=== PATIENT | female | born 1955 | race Caucasian/White ===

== ENCOUNTER → 2018-05-05 03:58 | Outpatient (CLI) | payer BC, SELFPAY ==
[2018-05-05 08:43] LABS: Abs Immature Grans 0.03 k/cumm (0.0-0.09); Absolute Basophil Count 0.05 k/cumm (0.0-0.2); Absolute Eosinophil Count 0.09 k/cumm (0.0-0.7); Absolute Lymphocyte Count 1.72 k/cumm (1.2-3.4); Absolute Monocyte Count 0.76 k/cumm (0.11-0.7); Absolute Neutrophil Count 4.17 k/cumm (1.2-6.7); Basophils % 0.7; Eosinophils % 1.3; HCT 39.7 % (36.0-46.0); HGB 13.2 g/dL (12.0-15.5); Immature Grans % 0.4; Lymphocytes % 25.2; Mean Corp. HGB Concentration 33.2 g/dL (32.0-36.0); Mean Corpuscular Hemoglobin 29.5 pg (27.0-33.0); Mean Corpuscular Volume 88.6 fL (80-95); Mean Platelet Volume 12.2 fL (8.0-11.0); Monocytes % 11.1; Neutrophils % 61.3; Platelet Count 272 x1000/uL (130-400); RBC 4.48 m/cumm (4.00-5.20); RBC Distribution Width 13.9 % (11.7-14.6); White Blood Cell Count 6.82 k/cumm (4.4-10.8)
[2018-05-05 09:46] LABS: ESR 33 MM/HR (0-30)
[2018-05-05 10:01] LABS: ALT 22 U/L (12-78); AST 21 U/L (15-37); Albumin 3.6 g/dL (3.4-5.0); Alkaline Phosphatase 92 U/L (46-116); Anion Gap 9.6 mmol/L (3-11); BUN 10 mg/dL (7-18); Bilirubin, Total 0.4 mg/dL (0.2-1.0); C-Reactive Protein 1.83 mg/dL (0.0-0.3); CO2 26.4 mmol/L (21.0-32.0); CREATININE 1.09 mg/dL (0.55-1.02); Calcium 9.1 mg/dL (8.5-10.1); Chloride 106 mmol/L (98-107); Glucose 91 mg/dL (70-100); Sodium 142 mmol/L (136-145)
[2018-05-06 13:57] LABS: ANA Interpretation Negative (NEGAT)
== END ==
PROVIDERS: PCP Internal Medicine; Visit Provider Internal Medicine Rheumatology
DX: R76.8 Other specified abnormal immunological findings in serum (principal); M25.50 Pain in unspecified joint
CPT/HCPCS: 36415; 80053; 85652; 85025; 86038; 86140; 86235

== ENCOUNTER 2019-03-13 09:24 | Outpatient (CLI) | payer BC, SELFPAY ==
[2019-03-13 11:47] LABS: TSH (W/Ref FT4) 2.56 uIU/mL (0.358-3.74)
== END 2019-03-13 09:44 ==
PROVIDERS: PCP Internal Medicine; Visit Provider Internal Medicine
DX: E03.9 Hypothyroidism, unspecified (principal)
CPT/HCPCS: 36415; 84443

== ENCOUNTER 2019-04-18 00:37 | Outpatient (CLI) | payer BC, SELFPAY ==
--- NOTE | 2019-04-18 14:45 | DI.RAD_ITS ---
SYMPTOMS/DIAGNOSIS: PREMATURE MENOPAUSE, E28.319, HYPOTHYROIDISM, E03.9 DEXA SCAN: Routine examination. Evaluation of the spine shows no compression deformities. Evaluation of the left hip shows a total T score of 1 and a Z score of 2. Evaluation of the lumbar spine shows a total T score of 0.3 and a Z score of 1.8. IMPRESSION: These are within normal limits. No evidence of osteoporosis is present.
--- NOTE | 2019-04-18 15:10 | DI.MAMMO_ITS ---
SYMPTOM/DIAGNOSIS: SCREENING, Z12.31 MAMMOGRAMS: Mammograms were interpreted according to the usual protocol including computer analysis with CAD system, tomosynthesis and C view imaging. Comparison is with the prior examinations. No suspicious masses or microcalcifications are seen. There is no definite evidence of malignancy. IMPRESSION: Negative mammogram. Routine screening is recommended. Category 1, breast density A. MQSA ASSESSMENT OF FINDINGS: Negative. Category 1. Patient will receive a letter notifying them of these results. BI-RAD category A. The breasts are almost entirely fatty.
== END 2019-04-18 00:57 ==
PROVIDERS: PCP Internal Medicine; Visit Provider Internal Medicine
DX: E03.9 Hypothyroidism, unspecified (principal); E28.319 Asymptomatic premature menopause; Z12.31 Encounter for screening mammogram for malignant neoplasm of breast
CPT/HCPCS: 77063; 77067; 77080

== ENCOUNTER 2019-04-18 11:10 | Outpatient (CLI) | payer BC, SELFPAY | END 2019-04-18 11:30 | PROVIDERS: PCP Internal Medicine; Visit Provider Internal Medicine | DX: R69 Illness, unspecified (principal) ==

== ENCOUNTER 2019-10-24 08:33 | Outpatient (CLI) | payer BC, SELFPAY ==
--- NOTE | 2019-10-24 08:14 | HPE_ITS ---
Date of service: 10/24/19 Assessment and Plan Assessment and plan (1) Tricompartment osteoarthritis of left knee: Status: Chronic Assessment and plan: Left total knee replacement. Details of surgery were discussed with patient as well as risks and pertinent anatomy. All questions were answered. History of Present Illness History of Present Illness Chief Complaint: Left knee pain Narrative: Ankit grant comes in today for preop history and physical for a left total knee replacement. She has been bothered by her left knee for many years, she thinks that the arthritis stems from a couple of injuries that she had 20 years ago. She had had an injection by her security sales manager in her left knee which provided her fairly good relief but only for a few weeks. Knee bothers her mostly when she is ambulating up or down stairs. Also bothers her on uneven ground, she is walking in a manner that is not straight forward. She has been modifying her activity, and taking ibuprofen to try to help with the pain. She continues to have pain even with these activity modifications, as well as after injections. Due to her failure of conservative treatment, Dr. Jones does offer a left total knee replacement, and she is anxious to proceed. Pertinent Surgical Information Patient denies history of hypertension, CVA, [place], angina, asthma, COPD, renal or liver disorders, hepatitis, bleeding disorders, diabetes, immune or thyroid disorders. No complications from anesthesia. Review of Systems Constitutional Constitutional: Denies fever(s) ENT Ears, Nose, Mouth, and Throat: Denies dizziness and Denies sore throat Cardiovascular Cardiovascular: Denies chest pain, Denies palpitations and Denies dyspnea Respiratory Respiratory: Denies cough and Denies dyspnea Gastrointestinal Gastrointestinal: Denies abdominal pain, Denies melena, Denies hematochezia, Denies diarrhea, Denies nausea and Denies vomiting Genitourinary Genitourinary: Denies hematuria and Denies dysuria Neurologic Neurologic: Denies dizziness Endocrine Endocrine: Denies palpitations [facility] Medical History (Updated 10/24/19 @ 09:06 by Ky Mishra) Acquired hypothyroidism (Chronic 02/02/17) BMI 50.0-59.9, adult (Chronic) Complex atypical endometrial hyperplasia (Resolved 06/08/17) fx left clavicle GERD (gastroesophageal reflux disease) (Chronic) H/O cancer of uterus (Acute) History of elevated antinuclear antibody (MYRNA) (Acute) Shingles (Acute) 05/2019 minor outbreak Surgical History Cholecystectomy (09/27/04) H/O hysterectomy with oophorectomy (Acute) [facility] [place] Social History (Updated 08/30/19 @ 15:24 by Teri Greer) Smoking/Tobacco Use Status: Never Alcohol Intake: current Alcohol Intake frequency: a few times a week Alcohol type: wine Drug use: Never Substance use type: does not use Household members: spouse Number of Children: 0 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 Current gender identity: female What is your relationship status?: Panel score (0-1 are the most socially isolated patients): 1 What type of physical activity do you participate in: walking Duration: 15-30 minutes/day Frequency: 3-4 times per week Working smoke detector in home: Yes Carbon monox detector in home: Yes Meds Home Medications and Allergies Home Medications Medication Instructions Recorded Confirmed Type omeprazole 20 mg PO DAILY 08/30/13 10/24/19 History levothyroxine 75 mcg tablet 75 mcg PO DAILY #90 tab-cap 03/14/19 10/24/19 Rx ibuprofen 200 mg capsule 800 mg PO BID PRN cap 08/30/19 10/24/19 History Allergies Allergy/AdvReac Type Severity Reaction Status Date / Time minocycline HCl Allergy Severe Anaphylaxsi Verified 10/24/19 09:09 [From Minocin] s Skin Cleanser Combination Allergy Severe Anaphylaxsi Verified 10/24/19 09:09 No.4 s [From Minocin] adhesive AdvReac Intermediate Verified 10/24/19 09:09 hayfever Allergy Mild Uncoded 10/24/19 09:09 Exam [facility] Head: normocephalic and atraumatic General nose exam: no nasal discharge Throat: uvula midline and no uvular edema Other: soft palate rises symmetrically, no erythema Eyes Conjunctivae: conjunctivae normal Sclera: sclerae normal Pupils: PERRL Resp Effort & Inspection: normal respiratory effort Auscultation: clear to auscultation bilaterally and no wheezes Cardio Rate: regular rate Rhythm: regular rhythm Heart Sounds: S1 normal, S2 normal and no murmurs GI Palpation: soft, no hepatosplenomegaly and nontender Auscultation: normal bowel sounds Results Labs Result diagrams: 10/24/19 09:45
[2019-10-24 10:07] LABS: Abs Immature Grans 0.03 k/cumm (0.0-0.09); Absolute Basophil Count 0.05 k/cumm (0.0-0.2); Absolute Lymphocyte Count 2.51 k/cumm (1.2-3.4); Absolute Monocyte Count 0.93 k/cumm (0.11-0.7); Basophils % 0.6; Eosinophils % 1.2; HCT 40.7 % (36.0-46.0); HGB 13.1 g/dL (12.0-15.5); Immature Grans % 0.4 %; Lymphocytes % 30.5; Mean Corp. HGB Concentration 32.2 g/dL (32.0-36.0); Mean Corpuscular Volume 90.2 fL (80-95); Mean Platelet Volume 11.5 fL (8.0-11.0); Monocytes % 11.3; Platelet Count 308 x1000/uL (130-400); RBC 4.51 m/cumm (4.00-5.20); RBC Distribution Width 13.7 % (11.7-14.6); White Blood Cell Count 8.22 k/cumm (4.4-10.8)
== END 2019-10-24 08:53 ==
PROVIDERS: PCP Internal Medicine; Visit Provider Orthopaedic Surgery
DX: M25.562 Pain in left knee (principal); M17.12 Unilateral primary osteoarthritis, left knee; Z01.818 Encounter for other preprocedural examination; Z01.812 Encounter for preprocedural laboratory examination
CPT/HCPCS: 36415; NC; 85025

== ENCOUNTER 2019-10-30 05:51 | Inpatient (IN) | payer BC, SELFPAY ==
[2019-10-24 08:44] VITALS: BP 117/74; PULSE 87; TEMP 36.7; O2SAT 94
--- NOTE | 2019-10-24 15:09 | PDOC.CMPRO ---
- If Service Date Differs Date of service: 10/24/19 Time of Service: 15:09 Care Management Progress Note CM was consulted to visit with Catarina at her pre-op appointment for her L Knee replacement scheduled for 10/30/[address] Jones. Catarina lives with her , Jayson near [facility] in [place], [place]. 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 Catarina's sister, Alissa will be staying with them for a couple weeks after her surgery to help care for her. Catarina lives in a two story home, with her bedroom upstairs, but she also has a bedroom downstairs near a bathroom that she can stay in until she is confident traveling up and down stairs. She does not have any DME currently. CM advised that her needs would be evaluated by PT while inpatient, post surgically. Catarina's PCP is Dr. Halie Blunt at [facility]. She has BC/BS for insurance. She is already signed up for the Portal. She has an advance directive filled out, but it is not yet on file at [facility]. She will bring in a copy to be uploaded to her chart by [facility]. Catarina's main concern is getting out of the house frequently in the winter to go to PT, as it is 40 min from her home. She inquired about having her PT in [place], [place]. Catarina is independent at baseline.
[2019-10-30] VITALS (18 sets, daily range): BP systolic 90–139; BP diastolic 34–76; PULSE 69–81; RESP 9–26; TEMP 36.2–36.9; O2SAT 91–100
[2019-10-30] MEDS: Lactated Ringers 1,000 ML 80 ML IV ×2 (06:48→12:06)
[2019-10-30] MEDS: Bupivacaine 0.25% Pres-Free 30 ML VIAL (07:18)
[2019-10-30] MEDS: ceFAZolin 2 GM/50 ML BAG IVPB ×3 (07:33→19:57)
[2019-10-30] MEDS: Hydrogen Peroxide 3% 480 ML BTL (09:12)
[2019-10-30] MEDS: Bupivacaine 0.5% Pres-Free 30 ML VIAL (10:26)
--- NOTE | 2019-10-30 11:34 | DI.RAD_ITS ---
EXAM: XR KNEE LT 2V AP,LAT INDICATION: check total knee components in RR. COMPARISON: Left Knee from 04/11/2019 TECHNIQUE: 2D digital imaging was performed. FINDINGS: The patient is now status post left total knee replacement. The orthopedic hardware appears in good position. Postsurgical changes are seen in the soft tissues. The bones are intact. IMPRESSION: Status post left TKR.
[2019-10-30] MEDS: HYDROmorphone 2 MG/ML VIAL IVP ×5 (11:41→12:34)
[2019-10-30] MEDS: Normal Saline Flush 10 ML SYR IV ×3 (11:41→21:25)
[2019-10-30] MEDS: Dexamethasone 4 MG/ML VIAL IVP (12:20)
[2019-10-30] MEDS: Acetaminophen 325 MG TAB 650 MG PO (13:11)
[2019-10-30] MEDS: oxyCODONE-CR 10 MG TABCR PO (13:12)
[2019-10-30] MEDS: POTASSIUM CHLORIDE/0.9% NACL 1,000 ML 125 MEQ IV ×2 (13:24→21:26)
--- NOTE | 2019-10-30 14:23 | IN_ITS ---
Date of service: 10/30/19 Time of Service: 14:23 PT Notes Visit Reasons: POST-OP L TOTAL KNEE Physical Therapy Inpatient Initial Evaluation Date: 10/30/2019 Referring Doctor: Rafael Jones PT Orders: PT CONSULT: s/p ortho surgery Precautions: Fall. Standard. Activity as tolerated. Immobilizer on L LE. Patient Profile/Admitting Diagnosis: Pt is 64-year-old female presenting status post left total knee arthroplasty. 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 Lives at home with her in [place], [place]. No stairs to enter the home. Ten steps to get the second floor where the master bedroom is. Notes that she is able to stay in a first floor bedroom, until she is able to use the stairs. The pt?s sister will be staying with her for a couple of weeks to help where needed. Equipment Owned/DME: none Subjective: Pt reports that she tired following her surgery. She is experiencing a 3-4/10 pain. Objective: General Observation: Knee immobilizer on L LE with Frost dressing and wound vac. O2 on 2 L/min via nasal cannula. IV line in L UE. Sanchez catheter in place. Mental Status: alert and oriented x4 Pain: 3-4/10 with rest. 6-7/10 with standing. Vital Signs: Supine: BP 111/70 mmHg, HR 72 bpm, SpO2 99% Sitting: BP 138/90 mmHg, HR 86 bpm, SpO2 95% Standing: BP 152/86 mmHg, HR 88 bpm, SpO2 99% ROM: Right Upper Extremity: Shoulder Flexion WFL. Shoulder abduction WFL. Elbow flexion WFL. Wrist flexion WFL. Opening and closing of hand WFL. Left Upper Extremity: Shoulder Flexion WFL. Shoulder abduction WFL. Elbow flexion WFL. Wrist flexion WFL. Opening and closing of hand WFL. Right Lower Extremity: Hip flexion WFL. Hip abduction WFL. Knee flexion WFL. Ankle dorsiflexion WFL. Ankle plantarflexion WFL. Left Lower Extremity: Hip flexion WFL. Hip abduction WFL. Knee flexion NT. Knee extension NT. Ankle dorsiflexion WFL. Ankle plantarflexion WFL. Strength: Right Upper Extremity: Shoulder flexors 5/5. Shoulder abductors 5/5. Elbow flexors 5/5. Elbow extensors 5/5. Installation Manager strong. Left Upper Extremity: Shoulder flexors 5/5. Shoulder abductors 5/5. Elbow flexors 5/5. Elbow extensors 5/5. Installation Manager strong. Right Lower Extremity: Hip flexors 5/5. Hip abductors 5/5. Knee flexors 5/5. Kne e extensors 5/5. Ankle dorsiflexors 5/5. Ankle plantarflexors 5/5. Left Lower Extremity: Hip flexors 5/5. Hip abductors 5/5. Knee flexors NT due to dressing and knee immobilizer. Knee extensors NT due to dressing and knee immobilizer. Ankle dorsiflexors 5/5. Ankle plantarflexors 5/5. Sensation: Intact as to pain and pressure on bilateral lower extremities. Bed Mobility/Transfers: Rolling CGA Supine to sit CGA (reports dizziness with initially sitting up which quickly resolves) Sit to supine CGA Sit to stand CGA Stand to sit CGA Bed to chair CGA Chair to bed CGA Gait: Pt was able to ambulate 6 feet forward + 5 feet backwards + 5 feet forward, WBAT on the LLE, using a front-wheeled walker. Step to gait pattern observed. CGA provided by PT student and PT. Pt was limited in the distance she was able to walk due to length of O2 cord. Knee immobilizer on L LE. No complaints of dizziness/lightheadedness with walking. Pt notes increase in pain to 6-7/10. Balance: Static Sitting: Normal Dynamic Sitting: Normal Static Standing: Fair Dynamic Standing: Fair Special Tests: Mobility Limitations Standardized Measure [facility] 6 clicks Basic Mobility Inpatient Short Form: Raw Score: 19 CMS Score: 42% deficit Informed Consent/Education: Patient instructed in purpose of PT consult and plan of care. Pt was instructed in exercises to complete every hour while in the hospital, including glute sets x10, quad sets x10, and ankle pumps x20. Assessment: Pt is 64-year-old female presenting status post left total knee arthroplasty. She presents with impairment level findings and functional limitations as listed below. AM-PAC raw score of 19 with 42% deficit. Pt would benefit from skilled physical therapy at this time for improvements in mobility level, strength, balance, and range of motion of the left knee. Patient presents with clinical signs and symptoms consistent with current/admitting diagnoses that have resulted to mobility limitations, gait instability, and generalized weakness as demonstrated by the following impairment level findings: 1. Decreased strength to left knee major muscle groups 2. Impaired standing balance 3. Impaired activity tolerance 4. Limitation of joint range of motion in left knee Impairments are contributing to the following functional limitations: 1. Dependent bed mobility skills 2. Increased dependence with transfers 3. Inability to safely ambulate without assistive device and physical assistance 4. Increase completion time for mobility ADL performance 5. Increased fall risk 6. Inability to negotiate steps alone safely Patient is assessed [place] a 32721 moderate complexity based on the following: History: Pt is 64-year-old female presenting status post left total knee arth roplasty. She presents with impairment level findings and functional limitations as listed above. AM-PAC raw score of 19 with 42% deficit. Examination: Demonstrable impairment in strength, balance, and range of motion with underlying impairments and functional limitations as documented above Presentation: Evolving Decision Makin moderate complexity Goals: Goals X1 week 1. Supine-Sit independent 2. Sit-Supine independent 3. Sit-Stand independent 4. Stand-Sit independent 5. Bed-Chair independent 6. Chair-Bed independent 7. Independent gait on level surface with use of least restrictive device for at least 300 feet without report of pain nor dyspnea 8. Independent stair negotiation while holding onto bilateral rails for at least 10 steps without report of pain nor dyspnea 9. Independent with home exercise program 10. Good static and dynamic standing balance/tolerance Plan of Care/Treatment Plan: 1-2x/day, 7 days/week x 1 week. Plan of care has been reviewed with the CLINICAL RESEARCH TECH providing the service under Physical Therapy direction. Initiate Physical Therapy intervention for strengthening, bed mobility, transfers, gait, stairs, balance training, use of assistive device. DISCHARGE RECOMMENDATIONS: Discharge to home with home health physical therapy for improved mobility level, strength, and balance, as well as a smooth transition to home. Recommend front-wheeled walker at this time. TREATMENT CODE/TIME: 21822 32 minutes x beginning at 14:23 P.M. Thank you very much for this referral. Velia Denney, SPT Doctor of Physical Therapy Student [facility] Supervision provided by Marychuy Espinoza PT, DPT, CLT [facility] [place], [place]
[2019-10-30] MEDS: Gabapentin 100 MG CAP PO ×2 (14:32→19:57)
[2019-10-30] MEDS: Docusate Sodium 100 MG CAP PO ×2 (14:32→19:57)
[2019-10-30] MEDS: Ketorolac 30 MG/ML VIAL IVP ×2 (15:09→21:25)
[2019-10-31] VITALS (8 sets, daily range): BP systolic 107–136; BP diastolic 62–76; PULSE 74–82; RESP 16–20; TEMP 36.4–37; O2SAT 94–97
[2019-10-31] MEDS: Acetaminophen 325 MG TAB 650 MG PO ×4 (00:47→17:20)
[2019-10-31] MEDS: ceFAZolin 2 GM/50 ML BAG IVPB ×2 (02:23→07:55)
[2019-10-31] MEDS: Ketorolac 30 MG/ML VIAL IVP ×4 (03:07→21:07)
[2019-10-31] MEDS: Normal Saline Flush 10 ML SYR IV ×4 (03:08→21:07)
[2019-10-31] MEDS: POTASSIUM CHLORIDE/0.9% NACL 1,000 ML 125 MEQ IV (05:56)
[2019-10-31] MEDS: Levothyroxine 75 MCG TAB PO (06:00)
[2019-10-31 06:42] LABS: HCT 30.8 % (36.0-46.0); HGB 9.8 g/dL (12.0-15.5); Mean Corp. HGB Concentration 31.8 g/dL (32.0-36.0); Mean Corpuscular Hemoglobin 28.3 pg (27.0-33.0); Platelet Count 262 x1000/uL (130-400); RBC 3.46 m/cumm (4.00-5.20); RBC Distribution Width 13.6 % (11.7-14.6); White Blood Cell Count 15.54 k/cumm (4.4-10.8)
[2019-10-31] MEDS: Gabapentin 100 MG CAP PO ×3 (07:55→19:20)
[2019-10-31] MEDS: Pantoprazole 40 MG TABCR PO (07:55)
[2019-10-31] MEDS: Docusate Sodium 100 MG CAP PO (07:55)
--- NOTE | 2019-10-31 09:45 | PTTR_ITS ---
Date of service: 10/31/19 Time of Service: 09:45 PT Notes Visit Reasons: POST-OP L TOTAL KNEE 10/31/2019 SUBJECTIVE: John stating that she did not sleep well last night because the machines were beeping constantly. She notes a little more pain in the knee but tolerable. She has been doing her hourly exercises without difficulty. OBJECTIVE: Supine in bed. Agreeable to PT treatment. Daniel is being taken out by nursing. TRANSFERS Sit to stand: SBA Stand to sit: SBA GAIT Device: FWW Weight bearing: AT L Assist: CGA Distance: 30' Deviation: step to pattern THEREX: Review muscle setting exercises and she performs 10 reps of each. SLR x 10 in recliner. See flow sheet. ASSESSMENT: Pt demonstrating improvement in her functional mobility with increased gait distance. She will have her sister and at home for support upon discharge. She is hoping for home health PT initially. PLAN: Continue current POC. Treatment time: 20' [id number] Dina Estrada, WHEY DEPARTMENT OPERATOR
--- NOTE | 2019-10-31 10:29 | W.NUTCONSULT ---
Date of service: 10/31/19 Time of Service: 10:29 Nutritional Consult ASSESSMENT: 64 year old morbidly obese female s/p left total knee replacement. Following regular diet, thus far with poor po intake. Will monitor po intake, weights and interevene as needed. Time Spent in Nutritional Counseling and Treatment: 0 time spent face to face
[2019-10-31] MEDS: Enoxaparin 40 MG/0.4 ML SYR SC (12:59)
--- NOTE | 2019-10-31 13:29 | W.PM.PROGNOT ---
Date of Service Date of service: 10/31/19 Time of Service: 13:29 Assessment and Plan Assessment and plan (1) Status post total left knee replacement: Status: Acute Assessment and plan: Assessment: Stable postop day #1 left total knee replacement. Pain is so well controlled that I agree with her that she could stop the OxyContin scheduled. She is moving so well that barring any setbacks she will probably be able to go home tomorrow. She wants to have home health PT initially. Plan: DC IV fluids. DC OxyContin scheduled. Continue to mobilize with PT. Probable discharge home tomorrow with home health PT referral. Subjective Subjective Interval history since last seen: She says she feels pretty good today. Pain is well controlled with the Toradol and Tylenol. She refused her scheduled OxyContin last night because she was concerned about her sleep apnea. She says she did not have any increased pain overnight. She wants to stop taking this. She said her pain is quite tolerable just with her present meds. Exam Narrative Exam Narrative: She transferred quite well with minimal assist today. She walked all the way down the corridor on second floor and back. Needs help lifting her leg into the bed. She is not had much drainage from her negative pressure dressing. Neurovascular examination of the left foot is entirely normal. She has been able to void since the Sanchez was DC'd this morning. Her hemoglobin is 9.8 g this morning Objective Objective Clinical Data: Abnormal lab results 10/31/19 Range/Units 06:07 WBC 15.54 H (4.4-10.8) k/cumm RBC 3.46 L (4.00-5.20) m/cumm Hgb 9.8 L (12.0-15.5) g/dL Hct 30.8 L (36.0-46.0) % MCHC 31.8 L (32.0-36.0) g/dL MPV 12.0 H (8.0-11.0) fL Vital Signs Temperature 37 C 10/31/19 11:05 Temperature Source Tympanic 10/31/19 11:05 Pulse 77 10/31/19 11:05 Pulse Rhythm Regular 10/31/19 08:09 Respiratory Rate 18 10/31/19 11:05 Respiratory Effort 10/31/19 08:09 Respiratory Depth Normal 10/31/19 08:09 Respiratory Pattern Normal 10/31/19 08:09 Blood Pressure 110/64 10/31/19 11:05 Pulse Oximetry 95 10/31/19 11:05 Respiratory End-tidal CO2 41 10/30/19 12:43 Oxygen Delivery Method Room Air 10/31/19 11:05 Oxygen Flow Rate 0 10/31/19 11:05 Pain Level 3 10/31/19 13:11 Intake & Output 10/30/19 10/31/19 10/31/19 23:59 11:59 23:59 Intake Total 1604.000 / 2474.000 1850 / 2090 240 / 2090 Output Total 1300 / 1300 Balance 1604.000 / 2124.000 550 / 790 240 / 790 Intake: IV 1356.000 / 2226.000 1050 / 1050 Oral 248 / 248 800 / 1040 240 / 1040 Output: Urine 1300 / 1300 Other: Urine Color Yellow Urine Appearance Cloudy Clear Sediment Urine Odor Normal Comment pt stated she voided in toilet, unseen by nursing Emesis Description None Voiding Methods Toilet Laboratory Results WBC 15.54 k/cumm (4.4-10.8) H 10/31/19 06:07 RBC 3.46 m/cumm (4.00-5.20) L 10/31/19 06:07 Hgb 9.8 g/dL (12.0-15.5) L 10/31/19 06:07 Hct 30.8 % (36.0-46.0) L 10/31/19 06:07 MCV 89.0 fL (80-95) 10/31/19 06:07 MCH 28.3 pg (27.0-33.0) 10/31/19 06:07 MCHC 31.8 g/dL (32.0-36.0) L 10/31/19 06:07 RDW 13.6 % (11.7-14.6) 10/31/19 06:07 Plt Count 262 x1000/uL (130-400) 10/31/19 06:07 MPV 12.0 fL (8.0-11.0) H 10/31/19 06:07
--- NOTE | 2019-10-31 15:07 | PTTR_ITS ---
Date of service: 10/31/19 Time of Service: 15:07 PT Notes Visit Reasons: POST-OP L TOTAL KNEE 10/31/2019 SUBJECTIVE: Pt stating she is doing well this afternoon. Pain is well managed. OBJECTIVE: Seated in her recliner. Agreeable to PT treatment. TRANSFERS Sit to stand: SBA Stand to sit: SBA Sit to supine: SBA GAIT Device: FWW Weight bearing: WBAT L Assist: SBA Distance: 100' Deviation: Step to pattern THEREX: LE light strengthening and ROM L knee. See flow sheet. ASSESSMENT: Pt is mobilizing well day 1 s/p total knee replacement. Her pain is well managed allowing for good participation with PT today. She is able to perform active SLR x 10 reps. PLAN: Continue current POC. Treatment time: 30 minutes [id number], [id number] Dina Estrada, WOOD CABINETMAKER
--- NOTE | 2019-10-31 16:36 | ROE_ITS ---
DATE OF PROCEDURE: October 30, 2019 PREOPERATIVE DIAGNOSIS: Osteoarthritis, left knee. POSTOPERATIVE DIAGNOSIS: Same. PROCEDURE: Left total knee arthroplasty. COMPONENTS USED: 1. Size 2.5 posterior cruciate-sacrificing femoral component. 2. Size 2.5 tibial tray. 3. 10 mm thick, size 2.5 posterior cruciate-substituting tibial insert. The patella was not resurfaced. ANESTHESIA: General, supplemented with a femoral nerve block, Nathan Atkinson CRNA SURGEON: Rafael Jones M.D. TOUR DIRECTOR: Eddie Seth INDICATIONS: This is a 64-year-old white female with a BMI of 51 who is experiencing disabling pain from osteoarthritis of her left knee. She has been managed conservatively in an attempt the knee for knee replacement as long as possible. She, however, is no longer getting any relief of pain from co nservative measures. Her ambulation and activities of daily living are significantly impacted by her pain. Total knee replacement was recommended to alleviate her pain and hopefully restore some of he r previous ambulatory abilities. The risks and complications of the procedure have been explained to the patient in detail preoperatively. The patient has also been informed about increased complicati on rate in patients with BMI's greater than 40. PROCEDURE: The patient was taken to the operating room on 10/30/2019. She was given 3 grams of Ancef I V. She was placed supine on the operating table. A femoral nerve block was administered, then a gen eral anesthetic was administered. A proximal tourniquet was applied to the left thigh and then the l eft lower extremity was prepped from toes to tourniquet and draped free in the usual sterile fashion. One gram of tranexamic acid was given IV and the tourniquet was inflated to 380 mmHg. An anterior midline incision was made beginning at the tibial tubercle and extending four inches prox imal to the patella. The incision was carried down through the skin and subcu to the fascia. A medi al parapatellar capsular incision was made and was extended proximally and longitudinally in line wit h the quadriceps tendon. A medial subperiosteal release was performed. The patella was everted and the knee was hyperflexed. The patella articular surface looked fairly well preserved and the decisio n was made not to resurface the patella because of your relatively young age and morbid obesity. The distal femur was resected using intramedullary alignment guides and jigs. A size 2.5 femoral com ponent, posterior cruciate-substituting, was selected as the proper size. Medial and lateral menisce ctomies were performed. Anterior and posterior cruciate ligaments were sacrificed. The posterior ca psule was released from the posterior femur and posterior tibia with periosteal elevators. In the po steromedial compartment multiple small loose bodies were evacuated. The proximal tibia was resected using extramedullary alignment guides and jigs. The more-damaged side, which is the medial side, was referenced as the side for the resection. The patient was found to require a size 2.5 tibial tray. This provided coverage up to the cortical margins of the tibia for added support. Rotation alignmen t was determined in the keel for the tibial component was reamed out in proper rotation alignment. T rial reduction was then performed with the trial components. The patient had excellent stability fro m 0 to 90 degrees of flexion and had full extension with a 10 mm insert. The trial components were r emoved and the bones were prepared for cementing. The proximal tibia was irrigated with pulse irrigation lavage of saline solution and drying with bj xide-soaked strip sponges. One batch of gentamicin-impregnated methylmethacrylate was vacuum-mixed. The most-liquid portion of the cement was placed on the undersurface of the tibial tray. The more-d oughy portion of the methylmethacrylate was hand-packed into the proximal tibia. The tibial componen t was inserted and packed into place with the impactor and mallet and further pressurized using the t rial inserts and extending the knee. Excess cement was trimmed from the margins of the tibial tray w hile the cement was still soft using the plastic cement removal tool. When the first batch of methyl methacrylate had cured, the trial components were removed. Any excess cement that was overhanging th e tibial tray was removed with an osteotome and a mallet. The distal femur was then prepared for cementing with pulse irrigation lavage of saline solution and drying with peroxide-soaked strip sponges. The hole from the intramedullary guide was packed with so me resected bone from the previous distal femoral cuts. Another batch of gentamicin-impregnated meth ylmethacrylate was vacuum-mixed and was hand-packed into the distal femur and the more liquid portion of the cement was packed on the posterior aspects of the femoral component. The femoral component w as inserted and packed into place and further pressurized using the trial insert and extending the kn ee. Excess cement was trimmed from the margins of the femoral component while the cement was still s oft using the plastic cement removal tool. When the second batch of methylmethacrylate had cured, th e trial insert was removed. The posterior recesses of the knee were then examined a final time and a ny residual cement debris was removed from the posterior condyles of the femoral component at this ti me. The knee was irrigated a final time with pulse irrigation lavage of saline solution. The actual insert, size 2.5 with 10 mm posterior cruciate-retaining was placed on the tibial tray and then redu france onto the femoral condyles. The left knee was flexed over soft goods and closure was begun. The capsular margins and the posterior capsule were infiltrated with 0.5% Marcaine solution. The med ial capsule was approximated with interrupted vetpja-rr-jqagk sutures of #1 Vicryl suture material. The quadriceps tendon was repaired with interrupted [id number] sutures of #1 Vicryl suture mater ial. An additional 15 cc's of 0.5% Marcaine solution was injected through a separate puncture wound into the knee joint after the joint was closed. Hemostasis was obtained with electrocautery. The to urniquet was released at this point and a second gram of tranexamic acid was administered IV. The molina bcu was approximated with interrupted #2-0 Vicryl sutures. A running subcuticular suture of #3-0 Pro jameel was used to approximate the skin edges. A PREVENA negative pressure suction dressing was applie d to the incision and connected to battery suction. Overlying the PREVENA dressings, the incision wa s dressed with gauze 4x4's, ABD pads and wrapped with DENI bandages. The patient tolerated the procedure well. Her general anesthesia was reversed without complications and she was discharged to the recovery room in good condition. Estimated blood loss was about 250 cc 's.
--- NOTE | 2019-10-31 17:07 | PDOC.CMIN ---
- If Service Date Differs Date of service: 10/31/19 Time of Service: 17:07 Care Management Initial Assess REASON FOR HOSPITALIZATION:: L Knee Replacement PAST MEDICAL HISTORY/PAST SURGICAL HISTORY:: medical History (Updated 10/24/19 @ 09:06 by Ky Mishra). Acquired hypothyroidism (Chronic 02/02/17). BMI 50.0-59.9, adult (Chronic). 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 fx left clavicle. GERD (gastroesophageal reflux disease) (Chronic). H/O cancer of uterus (Acute). History of elevated antinuclear antibody (MYRNA) (Acute). Shingles (Acute). 05/2019. minor outbreak. Surgical History . Cholecystectomy (09/27/04). H/O hysterectomy with oophorectomy (Acute). [facility] [place] 06/[place] PREVIOUS FUNCTIONAL STATUS/SOCIAL/FAMILY SUPPORTS:: Catarina lives in [place] with her , Jayson. They live in a two story home with a bed/bath on the first floor, but their master bed/bath is on the second floor with 9-10 steps upstairs. 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 Catarina's sister, Alissa is identified as a support, and will visit Catarina for a couple weeks post surgically to assist Catarina with ADL's. Catarina is otherwise independent at baseline. CURRENT FUNCTIONAL STATUS:: Catarina was sitting up in her chair when CM met with her. Her and sister were in the room with her. She reported that she was feeling good, although it was painful to work with PT. Per MD, she is doing very well with PT and may be ready for d/c home tomorrow with new orders for HH PT and a FWW, coordinted by CM. CM will continue to follow. ADVANCE DIRECTIVES:: None on file. Pt states that she has one and will bring it to [facility] to be put on her chart. Has patient been provided with information about the portal?: Yes Did the patient sign up for the portal?: Yes (Previously signed up) CODE STATUS:: Full Code INSURANCE COVERAGE / FINANCIAL ISSUES:: [employer]AR[employer]IA CURRENT HOME/COMMUNITY SERVICES/EQUIPMENT:: Catarina has grab bars in her shower. PRIMARY CARE PHYSICIAN:: Dr. Halie Blunt POTENTIAL DISCHARGE NEEDS:: Catarina will need new orders for HH PT, as well as a FWW and f/u appointment with Ortho. PATIENT/FAMILY EDUCATION NEEDS:: Review discharge instructions regarding activity levels and medications, discussion of self care including ask me three ANTICIPATED BARRIERS TO DISCHARGE:: None identified at this time. TRANSPORTATION:: Catarina's will transport her via private vehicle when ready. PLAN:: Catarina will return home when medically cleared, possibly tomorrow. She will have new orders for HH PT, as well as a new FWW through [facility], coordinated by CM. Her , Jayson will transport her via private vehicle when ready. She will follow up with Ortho, as recommended. CM will continue to follow.
[2019-11-01] MEDS: Ketorolac 30 MG/ML VIAL IVP ×2 (03:07→09:09)
[2019-11-01] MEDS: Normal Saline Flush 10 ML SYR IV ×2 (03:07→09:10)
[2019-11-01 03:19] VITALS: BP 129/61; PULSE 76; RESP 20; TEMP 36.8; O2SAT 96
[2019-11-01] MEDS: Levothyroxine 75 MCG TAB PO (06:32)
[2019-11-01 07:29] VITALS: BP 125/62; PULSE 74; RESP 18; TEMP 36.7; O2SAT 95
[2019-11-01 07:35] LABS: HCT 28.5 % (36.0-46.0); HGB 9.1 g/dL (12.0-15.5); Mean Corp. HGB Concentration 31.9 g/dL (32.0-36.0); Mean Corpuscular Hemoglobin 29.3 pg (27.0-33.0); Mean Corpuscular Volume 91.6 fL (80-95); Mean Platelet Volume 12.2 fL (8.0-11.0); Platelet Count 219 x1000/uL (130-400); RBC 3.11 m/cumm (4.00-5.20); RBC Distribution Width 14.2 % (11.7-14.6); White Blood Cell Count 10.64 k/cumm (4.4-10.8)
[2019-11-01] MEDS: Pantoprazole 40 MG TABCR PO (08:08)
[2019-11-01] MEDS: Acetaminophen 325 MG TAB 650 MG PO (08:09)
[2019-11-01] MEDS: Gabapentin 100 MG CAP PO ×2 (08:10→13:48)
--- NOTE | 2019-11-01 10:30 | PT.INTREAT ---
Date of service: 11/01/19 Time of Service: 10:30 PT Notes Visit Reasons: POST-OP L TOTAL KNEE 11/01/2019 SUBJECTIVE: Catarina stating she slept well last night. She has some achiness in the knee but tolerable. OBJECTIVE: Seated in her recliner. Agreeable to PT treatment. TRANSFERS Sit to stand: SBA Stand to sit: SBA GAIT Device: FWW Weight bearing: AT L Assist: SBA Distance: 150' Deviation: Step through pattern THEREX: L knee ROM, light muscle setting and SLR actively. ROM 0-70 degrees. Review ROM activities for home completion. PT EDUCATION: Instruct pt and her sister on proper use of the immobilizer as it was donned incorrectly. ASSESSMENT: Demonstrating improvement with functional mobility, able to increase her gait distance with step through pattern today. Actively performing SLR without difficulty. PLAN: Continue current POC. Treatment time: 23' [id number], [id number] Dina Estrada, CORPORATE WELLNESS COORDINATOR
[2019-11-01 11:15] VITALS: BP 122/81; PULSE 79; RESP 20; TEMP 37; O2SAT 94
[2019-11-01] MEDS: HYDROcodone 5/Acetaminophen 325 TAB PO (11:55)
[2019-11-01] MEDS: Enoxaparin 40 MG/0.4 ML SYR SC (11:55)
--- NOTE | 2019-11-01 13:05 | DSE_ITS ---
Date of service: 11/01/19 Time of Service: 13:05 DS: Diagnosis Discharge Diagnosis (1) Status post total left knee replacement: Status: Acute Discharge Plan Disposition Patient Disposition: HOME W/HOME HEALTH SERVICE Condition: Good Discharge Details Reason For Visit: POST-OP L TOTAL KNEE Admit Date/Time: 10/30/19 05:51 Admit Provider: Rafael Jones Attending Provider: Rafael Jones Primary Care Provider: Halie Blunt Hospital Course Hospital Course: Patient was taken to the operating on the day of admission through 10/30/19 where she underwent a left total knee arthroplasty without complications. Postop hemoglobin stabilized at 9.1 g. She was mobilized per protocol for total knee replacement. She progressed rapidly with mobilization achieving full independence by 11/01/2019. On 11/01/2019 she was able to do 10 straight leg raises without her splint on. She was flexing her knee to 70 degrees. She was afebrile. She was utilizing only hydrocodone for pain. It was felt that she had a achieved all acute care goals and was ready for home discharge. She prefers to have home health PT initially since she [place] in a remote area and transportation to PT may not be available. Home Meds and New Rx's Prescriptions: New celecoxib [Celebrex] 200 mg capsule 200 mg PO BID Qty: 60 RF: 0 hydrocodone-acetaminophen 5-325 mg tablet 1 tab PO Q4H PRN (Reason: pain) Qty: 30 RF: 0 Discontinued ibuprofen 200 mg capsule 800 mg PO BID PRNRF: 0 No Action levothyroxine 75 mcg tablet 75 mcg PO DAILY Qty: 90 RF: 3 omeprazole 20 MG capsule,delayed release(DR/EC) 20 mg PO DAILY RF: 0 Discharge Instructions Additional Instructions: Elevate L leg when sitting. Use walker to ambulate. Can stop using knee immobilizer at home. May shower and get dressings. After showering, pat dressing dry. Return to 's office next to remove the post-op dressing. Home health physical therapy starting Wednesday. L total knee rehab and gait training. Take one baby aspirin (81 mg) twice/day for 30 days to prevent blood clots in legs. Take celebrex as prescribed instead of ibuprofen. It doesn't affect your stomach and is better for post-op pain and inflammation. Take hydrocodone for breakthru pain, if needed. Apply cryocuff to L knee 4 times/day for 1 hour each time. May take tylenol in addition for pain. Tylenol will not interact with celebrex or hydrocodone. Referrals: Rafael Jones MD [ [facility] STAFF PHYSICIAN] - (F/u on Wednesday11/07/19) Activity:: Activity as Tolerated Equipment/Supplies:: Walker Diet:: As Tolerated Discharge Orders Discharge Orders: Discharge Order (Routine); Ordered 11/01/19 Ordered By: Rafael Jones DS: Summary Status at Discharge Functional status at discharge: independent ambulation Overall status at discharge: patient is progressing back to baseline Mental Status: mental status grossly normal Speech and Movement: speech and movement normal Mood: congruent mood Affect: normal affect Exam Psych Mental Status: mental status grossly normal Speech and Movement: speech and movement normal Mood: congruent mood Affect: normal affect DS: Data Vitals/I&O Vitals and I&O: Vital Signs Temperature 37 C 11/01/19 11:15 Temperature Source Tympanic 11/01/19 11:15 Pulse 79 11/01/19 11:15 Pulse Rhythm Regular 11/01/19 10:14 Respiratory Rate 20 11/01/19 11:15 Respiratory Effort 11/01/19 10:14 Respiratory Depth Normal 11/01/19 10:14 Respiratory Pattern Normal 11/01/19 10:14 Blood Pressure 122/81 11/01/19 11:15 Pulse Oximetry 94 L 11/01/19 11:15 Respiratory End-tidal CO2 41 10/30/19 12:43 Oxygen Delivery Method Room Air 11/01/19 11:15 Oxygen Flow Rate 0 11/01/19 11:15 Pain Level 7 11/01/19 11:55 Intake & Output 10/31/19 11/01/19 11/01/19 23:59 11:59 23:59 Intake Total 1133.333 / 2983.333 450 / 450 Output Total 700 / 2000 400 / 400 Balance 433.333 / 983.333 50 / 50 Intake: IV 893.333 / 1943.333 Oral 240 / 1040 450 / 450 Output: Urine 700 / 2000 400 / 400 Other: Urine Color Yellow Yellow Urine Appearance Clear Clear Urine Odor None None Voiding Methods Toilet Toilet Data Completed and Pending Labs on day of discharge: Labs from last 24 hours 11/01/19 06:45 WBC 10.64 D RBC 3.11 L Hgb 9.1 L Hct 28.5 L MCV 91.6 MCH 29.3 MCHC 31.9 L RDW 14.2 Plt Count 219 MPV 12.2 H [facility] Social History (Updated 08/30/19 @ 15:24 by Teri Greer) Smoking/Tobacco Use Status: Never Alcohol Intake: current Alcohol Intake frequency: a few times a week Alcohol type: wine Drug use: Never Substance use type: does not use Household members: spouse Number of Children: 0 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
--- NOTE | 2019-11-01 13:22 | PDOC.HHF2F ---
Home Health Certification Home Health Certification: 1. Encounter Date and Reason I certify that VANDANA DILLON was seen by Rafael Jones MD on 11/01/19 and that I had a coal-rk-zrto encounter with this patient that meets the physician face to face encounter requirements. 2. Clinical Findings Supporting Skilled Need and Homebound Status I certify that home health services are medically necessary, include either intermittent jail and/or physical/speech therapy, and that this patient is homebound in that absences from the home require considerable and taxing effort and are infrequent or of short duration, or are attributable to the need to receive medical care. [X] (a) Attached documentation from encounter provides clinical findings supporting skilled need and homebound status (including what assistance patient requires to leave the home). The encounter with the patient was in whole, or in part, for the following medical condition, which is the primary reason for home health care: POST-OP L TOTAL KNEE [facility]: Physical Therapy:ROM and strengthening L total knee. Gait-training with walker. WB as tolerated to L leg. Speech Therapy: Homebound:Lives in remote setting, has BMI of 51, and had L total knee on 10/30/19 which makes her homebound. 3. Certification and Authentication I certify that I composed the above information based on my clinical judgement relating to this patient's medical condition and, if applicable, clinical findings communicated to me by the NPP or inpatient physician who performed the Home Health Referral. All further orders will be obtained through (Community Based Physician - PCP)
[2019-11-01] MEDS: Docusate Sodium 100 MG CAP PO (13:48)
--- NOTE | 2019-11-01 17:16 | PDOC.CMDIS ---
- If Service Date Differs Date of service: 11/01/19 Time of Service: 17:16 LACE Index Scoring Tool - Questions: Length of Stay (in days): 3 Acuity (Admit via E.D.?): No E.D. Visits: 0 - Answers: Total Score: 3 Risk of Readmission: Low Risk Care Management Discharge Reason for Hospitalization: L Knee Replacement Discharge Plan: Catarina will return home with new orders for HH PT. Her sister will drive her home via private vehicle. CM coordinated a FWW through [facility]. She will follow up with Ortho, as recommended. She is agreeable to the plan. Patient/Family Education Needs: Review discharge instructions regarding medications and activity levels, discussion of self care including ask me three Services Needed at Discharge: DME Agency ([facility]), Home Health Care Services ([facility], HH PT)
--- NOTE | 2019-11-06 12:51 | INDS_ITS ---
Date of service: 11/06/19 Time of Service: 12:51 PT Notes Visit Reasons: POST-OP L TOTAL KNEE Inpatient Physical Therapy Discharge Summary Dates: 11/06/2019 Dates of Service: 10/30/2019 through 11/01/2019 This is a clinical summary of care provided on the duration of dates listed above. No charge was made in the completion of this documentation. Referring Doctor: Rafael Jones PT Orders: PT CONSULT: s/p ortho surgery Precautions: Fall. Standard. Activity as tolerated. Immobilizer on L LE. Patient Profile/Admitting Diagnosis: Pt is 64-year-old female presenting status post left total knee arthroplasty. 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 Lives at home with her in [place], [place]. No stairs to enter the home. Ten steps to get the second floor where the master bedroom is. Notes that she is able to stay in a first floor bedroom, until she is able to use the stairs. The pt?s sister will be staying with her for a couple of weeks to help where needed. Equipment Owned/DME: none Subjective: NT Objective: General Observation: NT Mental Status: NT Pain: NT ROM: Right Upper Extremity: Shoulder Flexion WFL. Shoulder abduction WFL. Elbow flexion WFL. Wrist flexion WFL. Opening and closing of hand WFL. Left Upper Extremity: Shoulder Flexion WFL. Shoulder abduction WFL. Elbow flexion WFL. Wrist flexion WFL. Opening and closing of hand WFL. Right Lower Extremity: Hip flexion WFL. Hip abduction WFL. Knee flexion WFL. Ankle dorsiflexion WFL. Ankle plantarflexion WFL. Left Lower Extremity: Hip flexion WFL. Hip abduction WFL. Knee flexion NT. Knee extension NT. Ankle dorsiflexion WFL. Ankle plantarflexion WFL. Strength: Right Upper Extremity: Shoulder flexors 5/5. Shoulder abductors 5/5. Elbow flexors 5/5. Elbow extensors 5/5. Financial Planning Analyst strong. Left Upper Extremity: Shoulder flexors 5/5. Shoulder abductors 5/5. Elbow flexors 5/5. Elbow extensors 5/5. Financial Planning Analyst strong. Right Lower Extremity: Hip flexors 5/5. Hip abductors 5/5. Knee flexors 5/5. Knee extensors 5/5. Ankle dorsiflexors 5/5. Ankle plantarflexors 5/5. Left Lower Extremity: Hip flexors 5/5. Hip abductors 5/5. Knee flexors NT due to dressing and knee immobilizer. Knee extensors NT due to dressing and knee immobilizer. Ankle dorsiflexors 5/5. Ankle plantarflexors 5/5. Sensation: Intact as to pain and pressure on bilateral lower extremities. Bed Mobility/Transfers: Rolling SBA Supine to sit SBA Sit to supine SBA Sit to stand SBA Stand to sit SBA Bed to chair SBA Chair to bed SBA Gait: Pt was able to ambulate 150 feet, WBAT on the LLE, using a front-wheeled walker. Step through gait pattern observed. SBA. No complaints of dizziness/ lightheadedness with walking. Pt notes increase in pain to 6-7/10. Balance: Static Sitting: Normal Dynamic Sitting: Normal Static Standing: Fair Dynamic Standing: Fair Assessment: Patient demonstrated significant functional mobility improvement during this episode of care. Pt is 64-year-old female presenting status post left total knee arthroplasty. She presents with impairment level findings and functional limitations as listed below. AM-PAC raw score of 19 with 42% deficit. Pt would benefit from skilled physical therapy at this time for improvements in mobility level, strength, balance, and range of motion of the left knee. Patient presented with clinical signs and symptoms consistent with current/admitting diagnoses that have resulted to mobility limitations, gait instability, and generalized weakness as demonstrated by the following impairment level findings: 1. Decreased strength to left knee major muscle groups 2. Impaired standing balance 3. Impaired activity tolerance 4. Limitation of joint range of motion in left knee Impairments continue to contribute to the following functional limitations: 1. Inability to safely ambulate without assistive device and physical assistance 2. Increase completion time for mobility ADL performance 3. Increased fall risk 4. Inability to negotiate steps alone safely Goals: Goals X1 week 1. Supine-Sit independent NOT MET 2. Sit-Supine independent NOT MET 3. Sit-Stand independent NOT MET 4. Stand-Sit independent NOT MET 5. Bed-Chair independent NOT MET 6. Chair-Bed independent NOT MET 7. Independent gait on level surface with use of least restrictive device for at least 300 feet without report of pain nor dyspnea NOT MET 8. Independent stair negotiation while holding onto bilateral rails for at least 10 steps without report of pain nor dyspnea NOT MET 9. Independent with home exercise program NOT MET 10. Good static and dynamic standing balance/tolerance NOT MET DISCHARGE RECOMMENDATIONS: Discharge to home with home health physical therapy for improved mobility level, strength, and balance, as well as a smooth transition to home. Recommend front-wheeled walker at this time. TREATMENT CODE/TIME: NC. Thank you very much for this referral. Marychuy Espinoza PT, DPT, CLT [facility] [place], [place]
== END 2019-11-01 15:35 | disposition home health service (06) | DRG 470 ==
LOC: MS 05:53 → PDS 06:15 → MS 12:18
PROVIDERS: Admitting Provider Orthopaedic Surgery; PCP Internal Medicine; Visit Provider Orthopaedic Surgery
PROC: 0SRD0J9 Replacement of Left Knee Joint with Synthetic Substitute, Cemented, Open Approach (ICD-10-PCS; CPT 27447; principal; 2019-10-30 07:30)
DX: M17.12 Unilateral primary osteoarthritis, left knee (principal); Z68.43 Body mass index [BMI] 50.0-59.9, adult; M25.562 Pain in left knee; Z96.652 Presence of left artificial knee joint; E66.9 Obesity, unspecified; G89.18 Other acute postprocedural pain; E03.9 Hypothyroidism, unspecified; K21.9 Gastro-esophageal reflux disease without esophagitis; G47.33 Obstructive sleep apnea (adult) (pediatric)
CPT/HCPCS: 27447; 36415; 76942; 85027; 97110; 97163; 97530; J1650; NC; 73560; J0690; J1100; J1885; J2001; J2250; J2405; J3475; L1830

== ENCOUNTER 2020-04-09 04:57 | Outpatient (CLI) | payer BC, SELFPAY ==
[2020-04-09 15:24] LABS: Anion Gap 6.9 mmol/L (3-11); BUN 14 mg/dL (7-18); CO2 29.1 mmol/L (21.0-32.0); CREATININE 0.91 mg/dL (0.55-1.02); Calcium 9.4 mg/dL (8.5-10.1); Calculated LDL 88 mg/dL (<100); Chloride 104 mmol/L (98-107); Cholesterol 171 mg/dL (<200); Glucose 121 mg/dL (74-106); HDL Cholesterol 63 mg/dL (40-60); Potassium 4.4 mmol/L (3.5-5.1); Sodium 140 mmol/L (136-145); TSH (W/Ref FT4) 4.83 uIU/mL (0.36-3.74); Triglyceride 101 mg/dL (<150)
[2020-04-09 15:57] LABS: FREE T4 1.06 ng/dL (0.76-1.46)
== END 2020-04-09 05:17 ==
PROVIDERS: PCP Internal Medicine; Visit Provider Internal Medicine
DX: Z13.220 Encounter for screening for lipoid disorders (principal); E03.9 Hypothyroidism, unspecified; R03.0 Elevated blood-pressure reading, without diagnosis of hypertension; Z79.1 Long term (current) use of non-steroidal anti-inflammatories (NSAID)
CPT/HCPCS: 36415; 80048; 80061; 84439; 84443

== ENCOUNTER 2020-05-14 01:07 | Outpatient (CLI) | payer BC, SELFPAY ==
--- NOTE | 2020-05-14 07:45 | DI.MAMMO_ITS ---
EXAM: MAMMO SCREENING CLINICAL HISTORY: screening,Z12.39 TECHNIQUE: Mammograms were interpreted according to the usual protocol including computer analysis w [employer] CAD system, tomosynthesis and C-view imaging. COMPARISON: 2010 through 2018 FINDINGS: The breasts are composed of mainly fatty density , Breast Density category A. No suspicious masses or suspicious microcalcifications are seen. No skin thickening or abnormal axillary lymph nodes are seen. There has been no significant change from prior exams. IMPRESSION: BI-RADS Category 1, Negative mammogram Yearly screening mammography is recommended. Breast Density Category A, fatty density. A negative radiographic report should not delay biopsy if a dominant or clinically suspicious mass is present. Up to ten percent of cancers are not identified on mammography. A negative report may reinforce clinical impression. Adenosis and dense breasts may obscure an underlying neoplasm. False positive reports average 6 to 10%. Patient will receive a letter notifying them of these results.
== END 2020-05-14 01:27 ==
PROVIDERS: PCP Internal Medicine; Visit Provider Internal Medicine
DX: Z12.31 Encounter for screening mammogram for malignant neoplasm of breast (principal); R92.2 Inconclusive mammogram
CPT/HCPCS: 77063; 77067

== ENCOUNTER 2020-07-16 01:32 | Outpatient (CLI) | payer BC, SELFPAY ==
[2020-07-16 09:19] LABS: Abs Immature Grans 0.02 10^3/uL (0.0-0.06); Absolute Basophil Count 0.06 10^3/uL (0.0-0.2); Absolute Eosinophil Count 0.09 10^3/uL (0.0-0.7); Absolute Lymphocyte Count 2.69 10^3/uL (1.2-3.4); Absolute Neutrophil Count 5.52 10^3/uL (1.2-6.7); Basophils % 0.6; HCT 40.3 % (36.0-46.0); HGB 12.9 g/dL (11.2-15.7); Immature Grans % 0.2; MCH 27.6 pg (27.0-33.0); MCV 86.3 fL (80-95); MPV 12.2 fL (8.0-11.0); Monocytes % 9.7; Neutrophils % 59.5; Nucleated RBC 0 %; Platelet Count 270 10^3/uL (130-400); RBC 4.67 10^6/uL (3.93-5.22); RDW 13.9 % (11.7-14.6); RDW-SD 43.8 fL; WBC 9.28 10^3/uL (4.4-10.8)
== END 2020-07-16 01:52 ==
PROVIDERS: PCP Internal Medicine; Visit Provider Surgery
DX: D64.9 Anemia, unspecified (principal)
CPT/HCPCS: 36415; 85025

== ENCOUNTER 2020-07-16 07:19 | Outpatient (CLI) | payer BC, SELFPAY ==
[2020-07-18 02:08] LABS: COVID-19 RT-PCR Result NEGATIVE (Negative)
== END 2020-07-16 07:39 ==
PROVIDERS: PCP Internal Medicine; Visit Provider Surgery
DX: Z11.59 Encounter for screening for other viral diseases (principal); Z01.818 Encounter for other preprocedural examination
CPT/HCPCS: U0003

== ENCOUNTER 2020-07-19 06:07 | Day surgery (SDC) | payer BC, SELFPAY ==
[2020-07-19 06:15] VITALS: BP 122/69; PULSE 79; RESP 14; TEMP 36.7; O2SAT 94
[2020-07-19] MEDS: Lactated Ringers 1,000 ML 80 ML IV (07:11)
--- NOTE | 2020-07-19 07:14 | W.PM.HP.N ---
Date of service: 07/19/20 Time of Service: 07:14 Assessment and Plan Assessment and plan (1) Colon cancer screening: Status: Acute Assessment and plan: I advised colonoscopy. The procedure was described including the risks of perforation with need for surgery or bleeding. Patient agrees to proceed. History of Present Illness Narrative: Last colonoscopy 2010 normal. Mother had polyps. Notes some chronic abdominal bloating but nothing new. No change in bowel habits. No blood in stool. Well controlled acid reflux. 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 Rec'd 2 doses Shingrix. Had 2nd episode shingles 2018 Tricompartment osteoarthritis of left knee Surgical History Cholecystectomy (09/27/04) H/O hysterectomy with oophorectomy (~06/2017) [facility] [place] 06/2017 Status post total left knee replacement Family History Mother Lung cancer Father , CHF at age 86. 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 Current gender identity: female What is your relationship status?: Panel score (0-1 are the most socially isolated patients): 1 What type of physical activity do you participate in: walking Duration: 15-30 minutes/day Frequency: 3-4 times per week Seatbelt use: always Drive intox or ride w/intox airport shuttle driver: No Working smoke detector in home: Yes Carbon monox detector in home: Yes Do you feel safe at home: Yes Do you feel safe in your relationship?: Yes Meds Home Medications and Allergies Home Medications Medication Instructions Recorded Confirmed Type omeprazole 20 mg PO DAILY 08/30/13 07/19/20 History acetaminophen 500 mg tablet 1,000 mg PO Q6H PRN tab 04/17/20 07/19/20 History celecoxib 200 mg capsule 200 mg PO DAILY #90 cap 04/17/20 07/19/20 Rx dulaglutide 0.75 mg/0.5 mL 0.75 mg SC QWEEK #4 syringe 04/17/20 07/19/20 Rx subcutaneous pen injector levothyroxine 75 mcg tablet 75 mcg PO DAILY #90 tab-cap 04/17/20 07/19/20 Rx pen needle, diabetic 31 gauge x #4 each 04/17/20 07/17/20 Rx 3/16 bisacodyl 5 mg tablet,delayed 5 mg PO ONCE #4 tab 05/27/20 07/19/20 Rx release polyethylene glycol 3350 17 17 g PO ONCE #238 gm 05/27/20 07/17/20 Rx gram/dose oral powder polyethylene glycol 3350 17 238 g PO ONCE #238 gm 05/27/20 07/19/20 Rx gram/dose oral powder Allergies Allergy/AdvReac Type Severity Reaction Status Date / Time minocycline HCl Allergy Severe Anaphylaxsi Verified 07/19/20 06:31 [From Minocin] s Skin Cleanser Combination Allergy Severe Anaphylaxsi Verified 07/19/20 06:31 No.4 s [From Minocin] adhesive AdvReac Intermediate Verified 07/19/20 06:31 hayfever Allergy Mild Uncoded 07/19/20 06:31 Exam Narrative Exam Narrative: Alert Lungs CTA Heart RRR Abdomen soft, nontender. Results Last Vital Signs Temp 98.1 F 07/19/20 06:15 Pulse 79 07/19/20 06:15 Resp 14 07/19/20 06:15 BP 122/69 07/19/20 06:15 Pulse Ox 94 07/19/20 06:15 COVID-19 Screening Have you,or household,traveled outside [place] in last 14 days?: No Had IN PERSON contact w/suspected or confirmed C-19 person: No
--- NOTE | 2020-07-19 07:16 | W.PM.DSUDISC ---
Discharge Plan Disposition Patient Disposition: HOME Condition: Good Discharge Details Reason For Visit: Colonoscopy Attending Provider: Bonnie Wright Primary Care Provider: Halie Blunt Home Meds and New Rx's Prescriptions: Continued polyethylene glycol 3350 17 gram/dose powder 17 g PO ONCE Qty: 238 RF: 0 acetaminophen [Tylenol Extra Strength] 500 mg tablet 1,000 mg PO Q6H PRNRF: 0 levothyroxine 75 mcg tablet 75 mcg PO DAILY Qty: 90 RF: 3 celecoxib 200 mg capsule 200 mg PO DAILY Qty: 90 RF: 3 Trulicity 0.75 mg/0.5 mL pen injector 0.75 mg SC QWEEK Qty: 4 RF: 3 (DME) pen needle, diabetic [Sure-Fine Pen [place]] 31 gauge x 3/16 needle See Rx Instructions .ROUTE .MEDSUPPLY Qty: 4 RF: 1 omeprazole 20 MG capsule,delayed release(DR/EC) 20 mg PO DAILY RF: 0 Discontinued polyethylene glycol 3350 17 gram/dose powder 238 g PO ONCE Qty: 238 RF: 0 bisacodyl [Dulcolax (bisacodyl)] 5 mg tablet,delayed release (DR/EC) 5 mg PO ONCE Qty: 4 RF: 0 Discharge Instructions Additional Instructions: Findings: Three small polyps were removed. My office will contact you with biopsy results. Follow up: Plan for a colonoscopy in 5 years. Please call if you develop: fevers >101.5 Nausea or Vomiting Abdominal pain that is not transient DAY SURGERY UNIT POST COLONOSCOPY INSTRUCTIONS 1. Because there will be medication in your system for the next 24 hours, you may feel a little sleepy. Your coordination will be affected. Therefore: a. Do not drive or operate dangerous equipment for 24 hours. b. Do not drink alcohol beverages for 24 hours (not even beer). c. Plan to go home and rest for the day. 2. Generally there are no restrictions on your activity after a day or so has gone by, but you may feel a bit fatigued for a few days. 3 After you arrive home you may have a light meal and return to a normal diet as you can tolerate it without feeling sick to your stomach. 4. After surgery, you may feel pain or discomfort. This should be only transient, but if it persists please contact your doctor. 5. If there are any questions regarding the findings of your procedure, please feel free to contact your doctor. 6. If you are unable to contact your doctor with a problem, contact the hospital at [phone]. 7. Continue all your regular medications unless directed otherwise. I understand the above instructions and have no questions. Signature of Patient or Responsible Adult Escort Date/Time Name of Responsible Adult Escort Signature of Nurse Date/Time Activity:: Activity as Tolerated Diet:: As Tolerated Discharge Orders Discharge Orders: Discharge Order (Routine); Ordered 07/19/20 Ordered By: Bonnie Wright DS: Diagnosis Discharge Diagnosis (1) Colon polyps: Status: Acute
--- NOTE | 2020-07-19 07:22 | W.COLOREPORT ---
Date of service: 07/19/20 Time of Service: 08:16 Colonoscopy Report Date of procedure: 07/19/20 Pre-op diagnosis general: Screening Post-op diagnosis procedure note: other (Colon polyps) Procedure: Colonoscopy with snare polypectomy and cauterization of polyp Surgeon: Bonnie Wright Anesthesia proc note operative: MAC Indications: This 64 year old woman presents for screening colonoscopy. Her last procedure in 2009 was normal. Procedure Description: The patient was placed in the left Oliveros position. Propofol was titrated to sedation. Digital rectal examination revealed no abnormalities. The scope was advanced to the cecum without difficulty. The ileocecal valve and appendiceal orifice were clearly identified. The prep was good. The scope was slowly withdrawn over the course of greater than 6 minutes with no abnormalities seen in the ascending, transverse, descending colon. In the sigmoid colon at 30cm a less than 1cm polyp was removed with the snare and retrieved for pathology. A more distal diminuitive polyp was removed with the snare but not retrieved. A tiny polyp in the rectum was cauterized. The rectum was otherwise normal including on retroflexed view. The patient tolerated the procedure well and was stable to recovery. Plan for surveillance colonoscopy in 5 years or sooner if symptoms indicate.
--- NOTE | 2020-07-19 07:59 | BOWEL_PTH ---
PATIENT: Catarina Kemp LOC: [facility] U#:[id number] AGE/SX: 64/F ROOM: RE07/19/[address]: Bonnie Wright MD : 1955 BED: DIS: 07/19/2020 SPEC #: [id number] RECD: 07/19/20 12:24 STATUS: ARCELIA REQ #: [id number] FRANCES: 07/19/20 07:[address]: Bonnie Wright DEPT: Surgical Specimen RECD BY: Koki Mendoza ENTERED: 07/19/20 12:25 SP TYPE: Bowel OTHR DR: Halie Blunt MD Tissues: 1 - BIOPSY BOWEL Procedures: GROSS AND MICRO LEVEL 4 Comments: [id number]
[2020-07-19 08:43] VITALS: BP 103/51; PULSE 71; RESP 16; TEMP 36.5; O2SAT 97
== END 2020-07-19 08:59 | disposition home or self-care (01) ==
PROVIDERS: PCP Internal Medicine; Visit Provider Surgery
PROC: 0DJD8ZZ Inspection of Lower Intestinal Tract, Via Natural or Artificial Opening Endoscopic (ICD-10-PCS; CPT 45378; principal; 2020-07-19 07:30)
DX: Z12.11 Encounter for screening for malignant neoplasm of colon (principal); K62.1 Rectal polyp; K63.5 Polyp of colon
CPT/HCPCS: 45385; 45384; 88305; NC; J2405

== ENCOUNTER 2020-08-15 02:24 | Outpatient (CLI) | payer BC, SELFPAY ==
[2020-08-16 21:47] LABS: SARS-CoV-2 RNA Source Nasal/Nares
[2020-08-16 21:49] LABS: SARS-CoV-2 RNA Not Detected (NotDetected)
== END 2020-08-15 02:44 ==
PROVIDERS: PCP Internal Medicine; Visit Provider Nurse Practitioner
DX: G47.33 Obstructive sleep apnea (adult) (pediatric) (principal); Z01.818 Encounter for other preprocedural examination
CPT/HCPCS: U0003

== ENCOUNTER 2020-12-13 22:07 | Outpatient (REF) | payer OTHER, SELFPAY ==
[2020-12-14 11:39] LABS: COVID-19 RT-PCR UVMMC Result Negative (Negative)
== END 2020-12-13 22:08 | disposition home or self-care (01) ==
LOC: LBN 22:07
PROVIDERS: PCP Internal Medicine; Visit Provider Student in an Organized Health Care Education/Training Program
DX: Z20.822 Contact with and (suspected) exposure to COVID-19 (principal); R05 Cough
CPT/HCPCS: U0003

== ENCOUNTER 2021-03-10 10:55 | Outpatient (CLI) | payer OTHER, SELFPAY ==
--- NOTE | 2021-03-10 10:00 | DI.RAD_ITS ---
Exam(s) XR KNEE LT 2V AP,LAT EXAM: XR KNEE LT 2V AP,LAT CLINICAL HISTORY: yearly. Followup TECHNIQUE: 2D digital imaging was performed. COMPARISON: CR XR KNEE LT 2V AP,LAT from 10/30/2019 FINDINGS: There is stable position alignment of the components of the prosthesis. No fracture or loosening natali dent. No radiographic evidence of osteomyelitis. IMPRESSION: DATA REPOSITORY: RADIATION DOSE DELIVERED:
== END 2021-03-10 10:56 | disposition home or self-care (01) ==
LOC: DIORS 10:55
PROVIDERS: PCP Internal Medicine; Referring Provider Internal Medicine; Visit Provider Physician Assistant Surgical
DX: Z96.652 Presence of left artificial knee joint (principal); Z47.1 Aftercare following joint replacement surgery
CPT/HCPCS: 73560

== ENCOUNTER 2021-03-13 02:55 | Outpatient (CLI) | payer OTHER, SELFPAY ==
[2021-03-13 10:20] LABS: Abs Immature Grans 0.06 10^3/uL (0.0-0.06); Absolute Basophil Count 0.08 10^3/uL (0.0-0.2); Absolute Eosinophil Count 0.11 10^3/uL (0.0-0.7); Absolute Lymphocyte Count 2.94 10^3/uL (1.2-3.4); Absolute Monocyte Count 0.92 10^3/uL (0.1-0.8); Absolute Neutrophil Count 5.51 10^3/uL (1.2-6.7); Basophils % 0.8; Eosinophils % 1.1; HCT 40.6 % (36.0-46.0); Immature Grans % 0.6; Lymphocytes % 30.6; MCH 28.2 pg (27.0-33.0); MCV 88.1 fL (80-95); MPV 11.7 fL (8.0-11.0); Monocytes % 9.6; Neutrophils % 57.3; Nucleated RBC 0 %; Platelet Count 296 10^3/uL (130-400); RBC 4.61 10^6/uL (3.93-5.22); RDW 13.8 % (11.7-14.6); RDW-SD 44.4 fL; WBC 9.62 10^3/uL (4.4-10.8)
[2021-03-13 10:26] LABS: ESR 56 mm/hr (0-30)
[2021-03-13 10:57] LABS: C-Reactive Protein 1.99 mg/dL (0.0-0.3)
== END 2021-03-13 02:56 | disposition home or self-care (01) ==
LOC: LBO 02:55
PROVIDERS: Physician Assistant Surgical; PCP Internal Medicine; Visit Provider Student in an Organized Health Care Education/Training Program
DX: M25.562 Pain in left knee (principal); Z96.652 Presence of left artificial knee joint; T84.84XA Pain due to internal orthopedic prosthetic devices, implants and grafts, initial encounter; M65.9 Synovitis and tenosynovitis, unspecified
CPT/HCPCS: 36415; 85652; 85025; 86140

== ENCOUNTER 2021-03-20 17:43 | Outpatient (REF) | payer OTHER, SELFPAY ==
[2021-03-20 13:26] LABS: Clarity Cloudy; Nucleated Cells 557 uL (0)
[2021-03-20 13:30] LABS: Mononuclear Cells 52 %; Polynuclear Cells 48 %
== END 2021-03-20 17:44 | disposition home or self-care (01) ==
LOC: LBN 17:43
PROVIDERS: PCP Internal Medicine; Visit Provider Student in an Organized Health Care Education/Training Program
DX: M25.562 Pain in left knee (principal); T84.84XA Pain due to internal orthopedic prosthetic devices, implants and grafts, initial encounter; Z96.652 Presence of left artificial knee joint
CPT/HCPCS: 87070; 87205; 89051

== ENCOUNTER 2021-04-21 01:22 | Outpatient (CLI) | payer OTHER, SELFPAY ==
--- NOTE | 2021-04-21 07:00 | DI.RAD_ITS ---
Exam(s) XR SINUS LIMITED 2V EXAM: XR SINUS LIMITED 2V CLINICAL HISTORY: chronic sinus congestion,POST NASAL DRIP,R09.82. TECHNIQUE: 2D digital imaging was performed. COMPARISON: No exams were available for comparison FINDINGS: Two views including sanon view and lateral view reveal no evidence of asymmetric mucosal thickening or fluid levels in the maxillary sinuses and ethmoidal air cells appear aerated do the frontal sinuse s. Density projected over the frontal bones frontal sinuses are consistent with hyperostosis frontal is interna. IMPRESSION: DATA REPOSITORY: RADIATION DOSE DELIVERED:
== END 2021-04-21 01:42 ==
PROVIDERS: PCP Internal Medicine; Visit Provider Internal Medicine
DX: R09.82 Postnasal drip (principal); R09.81 Nasal congestion
CPT/HCPCS: 70210

== ENCOUNTER 2021-04-21 02:12 | Outpatient (CLI) | payer OTHER, SELFPAY ==
[2021-04-21 09:59] LABS: ALT 21 U/L (14-59); AST 21 U/L (15-37); Albumin 3.6 g/dL (3.4-5.0); Alkaline Phosphatase 91 U/L (46-116); BUN 12 mg/dL (7-18); Bilirubin, Total 0.4 mg/dL (0.2-1.0); Calcium 9.1 mg/dL (8.5-10.1); Chloride 105 mmol/L (98-107); Glucose 111 mg/dL (74-106); Potassium 4.5 mmol/L (3.5-5.1); Sodium 142 mmol/L (136-145); TSH (W/Ref FT4) 4.76 uIU/mL (0.36-3.74); Total Protein 7.2 g/dL (6.4-8.2)
[2021-04-22 12:12] LABS: Hepatitis C Ab w Rflx HCV PCR Negative (Negative)
== END 2021-04-21 02:13 | disposition home or self-care (01) ==
LOC: LBO 02:12
PROVIDERS: PCP Internal Medicine; Visit Provider Internal Medicine
DX: E03.9 Hypothyroidism, unspecified (principal); R73.9 Hyperglycemia, unspecified; Z79.1 Long term (current) use of non-steroidal anti-inflammatories (NSAID); Z11.59 Encounter for screening for other viral diseases
CPT/HCPCS: 36415; 80053; 86803; 84439; 84443

== ENCOUNTER 2021-09-04 09:36 | Outpatient (CLI) | payer OTHER, SELFPAY ==
--- NOTE | 2021-09-04 09:15 | DI.RAD_ITS ---
Exam(s) XR KNEE RT 4V AP,LAT,MCKENNA,PAT EXAM: XR KNEE RT 4V AP,LAT,MCKENNA,PAT CLINICAL HISTORY: pain. TECHNIQUE: 2D digital imaging was performed. COMPARISON: CR Left Knee from 04/11/2019 CR Left Knee from 04/11/2019 FINDINGS: There is no evidence of fracture or obvious joint effusion. There is advanced narrowing of the media l compartment with [id number] and mild Verus deformity seen on the standing weight-bearing view. L ateral compartment exhibits normal height. Mild degenerative changes in the patellofemoral compartme nt. Bone density normal. No osseous lesions IMPRESSION: Advanced osteoarthritic degenerative narrowing of the medial compartment. DATA REPOSITORY: RADIATION DOSE DELIVERED:
== END 2021-09-04 09:37 | disposition home or self-care (01) ==
LOC: DIORS 09:36
PROVIDERS: PCP Internal Medicine; Referring Provider Internal Medicine; Visit Provider Physician Assistant Surgical
DX: M17.11 Unilateral primary osteoarthritis, right knee (principal)
CPT/HCPCS: 73564

== ENCOUNTER 2022-07-24 02:08 | Outpatient (CLI) | payer OTHER, SELFPAY ==
--- NOTE | 2022-07-21 15:13 | W.NUTCONSULT ---
Date of service: 07/21/22 Time of Service: 15:13 Nutritional Consult ASSESSMENT: Catarina was referred for nutritional counseling for weight and glycemic management. 5'4 297 lbs BMI: 50. 07/15/22 A1C: 5.9% Prediabetes. No other medical concerns. Catarina reports it has been easy for her to gain weight through out her life despite eating healthfully and exercising. IN last couple of years, she has become more sedentary due to knee pain- however, this is resolving as well. Diet Recall: Cereal;yogurt/fruit and tea. Lunch: skips often, Dinner: well balanced, home made. Exercise: walks 1-2 miles daily NUTRITIONAL DIAGNOSIS: Prediabetes INTERVENTION: Session today focused on meal plans that limit simple carbs and emphasize complex carbs, lean protein and healthy fats. Provided meal plans that limit carbs to no more than 100 grams daily. Encouraged 150 min of exercise per week. Goal is for a 10% weight loss in next 3 months. MONITORING AND EVALUATION: Follow up prn. No follow up planned at this time. Time Spent in Nutritional Counseling and Treatment: 30
[2022-07-24 10:04] LABS: ALT 14 U/L (14-59); AST 19 U/L (15-37); Albumin 3.4 g/dL (3.4-5.0); Alkaline Phosphatase 83 U/L (46-116); Anion Gap 6.1 mmol/L (3-11); BUN 17 mg/dL (7-18); Bilirubin, Total 0.3 mg/dL (0.2-1.0); CO2 27.9 mmol/L (21.0-32.0); Calculated LDL 87 mg/dL (<100); Chloride 105 mmol/L (98-107); Cholesterol 158 mg/dL (<200); Estimated GFR 62.91 (mL/min/1.73m2); Glucose 93 mg/dL (74-106); HDL Cholesterol 59 mg/dL (40-60); Sodium 139 mmol/L (136-145); TSH (W/Ref FT4) 7.59 uIU/mL (0.36-3.74); Total Protein 7.7 g/dL (6.4-8.2); Triglyceride 63 mg/dL (<150)
[2022-07-24 10:24] LABS: FREE T4 1.13 ng/dL (0.76-1.46)
[2022-07-27 10:29] LABS: HIV-1/2 Ag & Ab Screen Negative (Negative)
== END 2022-07-24 02:09 | disposition home or self-care (01) ==
LOC: LBO 02:08
PROVIDERS: PCP Nurse Practitioner; Visit Provider Nurse Practitioner
DX: E03.9 Hypothyroidism, unspecified (principal); E66.9 Obesity, unspecified; Z11.59 Encounter for screening for other viral diseases; R73.03 Prediabetes
CPT/HCPCS: 36415; 80053; 80061; 87389; 84439; 84443

== ENCOUNTER → 2022-08-05 02:19 | Outpatient (CLI) | payer OTHER, SELFPAY ==
--- NOTE | 2022-08-05 07:30 | DI.MAMMO_ITS ---
Exam(s) MAMMO SCREENING EXAM: MAMMO SCREENING CLINICAL HISTORY: screening,z12.39 TECHNIQUE: Bilateral full field digital CC and MLO mammographic images were obtained with 3D tomosyn thesis and utilizing computer aided detection (CAD). COMPARISON: Available for comparison. FINDINGS: Masses/Architectural Distortion: There is a focal asymmetric density in the upper central right breas t not present on the prior examination. This may be overlying fibroglandular tissue. Microcalcifications: No suspicious pleomorphic-type are seen. Skin Thickening/Nipple Retraction: None. IMPRESSION: 1. Focal asymmetric density in the upper central right breast on the MLO view. 2. This area should be further evaluated with a spot compression view. BI-RADS Category 0 - Assessment Incomplete: Need additional imaging evaluation Breast Density - Category A - Almost entirely fatty Breast density category C or D implies that the patient has dense breast tissue. Dense breast tissue is very common and is not abnormal but dense breast tissue can make it harder to find cancer on a ma mmogram. Also, dense breast tissue may increase their breast cancer risk. This information about the result of the mammogram report was provided to the patient to raise their awareness. Use this report when you speak with the patient about their risks for breast cancer, which includes their family hist ory. At that time, you may recommend for more screening tests (Ultrasound or MRI) as they might be us eful based on their risk. A negative radiographic report should not delay biopsy if a dominant or clinically suspicious mass is present. Up to ten percent of cancers are not identified on mammography. A negative report may reinforce clinical impression. Adenosis and dense breasts may obscure an underlying neoplasm. False positive reports average 6 to 10%. Patient will receive a letter notifying them of these results.
== END ==
PROVIDERS: PCP Nurse Practitioner; Visit Provider Nurse Practitioner
DX: Z12.31 Encounter for screening mammogram for malignant neoplasm of breast (principal); R92.8 Other abnormal and inconclusive findings on diagnostic imaging of breast
CPT/HCPCS: 77063; 77067

== ENCOUNTER → 2022-08-10 03:17 | Outpatient (CLI) | payer OTHER, SELFPAY ==
--- NOTE | 2022-08-10 14:15 | DI.MAMMO_ITS ---
Exam(s) MAMMO SCREEN CALL BACK UNI EXAM: MAMMO SCREEN CALL BACK UNI CLINICAL HISTORY: F/U ABNL MAMMO, FOCAL ASYMMETRIC DENSITY UPPER CENTRAL RT TECHNIQUE: Spot compression views with tomographic imaging were performed. COMPARISON: 2013 through recent exam 05 August 2022. FINDINGS: No suspicious masses or suspicious microcalcifications are seen. No persistent abnormality is seen on the additional views performed. The findings are consistent wit h overlying fibroglandular tissue. There has been no significant change from prior exams. IMPRESSION: BI-RADS Category 1, Negative Yearly screening mammography is recommended. Breast Density - Category B, scattered fibroglandular densities.
== END ==
PROVIDERS: PCP Nurse Practitioner; Visit Provider Nurse Practitioner
DX: R92.8 Other abnormal and inconclusive findings on diagnostic imaging of breast (principal)
CPT/HCPCS: 77063; 77067

== ENCOUNTER 2022-11-24 02:18 | Outpatient (CLI) | payer OTHER, SELFPAY ==
[2022-11-24 08:15] LABS: FREE T4 1.29 ng/dL (0.76-1.46); TSH 4.48 uIU/mL (0.36-3.74)
== END 2022-11-24 02:19 | disposition home or self-care (01) ==
LOC: LBO 02:18
PROVIDERS: PCP Nurse Practitioner; Visit Provider Nurse Practitioner
DX: E03.9 Hypothyroidism, unspecified (principal)
CPT/HCPCS: 36415; 84439; 84443

== ENCOUNTER → 2023-08-13 00:14 | Outpatient (CLI) | payer OTHER, SELFPAY | PROVIDERS: PCP Nurse Practitioner; Visit Provider Nurse Practitioner | DX: Z12.31 Encounter for screening mammogram for malignant neoplasm of breast (principal) | CPT/HCPCS: 77063; 77067 ==

== ENCOUNTER 2023-12-16 05:35 | Outpatient (CLI) | payer OTHER, SELFPAY ==
[2023-12-16 10:27] LABS: Abs Immature Grans 0.03 10^3/uL (0.0-0.06); Absolute Basophil Count 0.05 10^3/uL (0.0-0.2); Absolute Eosinophil Count 0.22 10^3/uL (0.0-0.7); Absolute Lymphocyte Count 2.59 10^3/uL (1.2-3.4); Basophils % 0.6; Eosinophils % 2.7; HCT 42.9 % (36.0-46.0); HGB 14.1 g/dL (11.2-15.7); Immature Grans % 0.4; Lymphocytes % 31.6; MCH 29.3 pg (27.0-33.0); MCHC 32.9 % (32.0-36.0); MCV 89 fL (80-95); MPV 12.5 fL (8.0-11.0); Monocytes % 9.8; Neutrophils % 54.9; Platelet Count 303 10^3/uL (130-400); RBC 4.82 10^6/uL (3.93-5.22); RDW 13.4 % (11.7-14.6); RDW-SD 43.9 fL; WBC 8.19 10^3/uL (4.4-10.8)
[2023-12-16 12:12] LABS: ALT 18 U/L (14-59); AST 22 U/L (15-37); Albumin 3.6 g/dL (3.4-5.0); Alkaline Phosphatase 87 U/L (46-116); Anion Gap 7.9 mmol/L (3-11); BUN 12 mg/dL (7-18); Bilirubin, Total 0.5 mg/dL (0.2-1.0); CO2 29.1 mmol/L (21.0-32.0); Calcium 9.7 mg/dL (8.5-10.1); Calculated LDL 94 mg/dL (<100); Chloride 105 mmol/L (98-107); Cholesterol 174 mg/dL (<200); Estimated GFR 62.13 (mL/min/1.73m2); Glucose 96 mg/dL (74-106); HDL Cholesterol 69 mg/dL (40-60); Potassium 4.1 mmol/L (3.5-5.1); Sodium 142 mmol/L (136-145); TSH (W/Ref FT4) 0.61 uIU/mL (0.36-3.74); Total Protein 7.7 g/dL (6.4-8.2); Triglyceride 55 mg/dL (<150)
[2023-12-16 12:37] LABS: Hemoglobin A1C 5.6 % (<5.7)
== END 2023-12-16 05:36 | disposition home or self-care (01) ==
LOC: LBO 05:35
PROVIDERS: Absent Provider Nurse Practitioner; PCP Nurse Practitioner; Referring Provider Nurse Practitioner; Visit Provider Nurse Practitioner
DX: E03.9 Hypothyroidism, unspecified (principal); R73.03 Prediabetes; E66.9 Obesity, unspecified
CPT/HCPCS: 36415; 80053; 80061; 83036; 84443; 85025

== ENCOUNTER 2024-06-15 15:47 | Outpatient (CLI) | payer OTHER, SELFPAY ==
--- NOTE | 2024-06-15 15:16 | DI.RAD_ITS ---
Exam(s) XR KNEE LT 3V AP,LAT,MCKENNA EXAM: XR KNEE LT 3V AP,LAT,MCKENNA CLINICAL HISTORY: LEFT KNEE PAIN. TECHNIQUE: 2D digital imaging was performed. Three views. COMPARISON: CR XR KNEE LT 2V AP,LAT from 10/30/2019 CR XR KNEE LT 2V AP,LAT from 03/10/2021 CR XR KNEE RT 4V AP,LAT,MCKENNA,PAT from 09/04/2021 FINDINGS: BONES: No acute fracture is present. No bony destructive lesion is seen. Stable appearance of femo ral tibial knee prosthesis. No abnormal surrounding lucencies. Enthesophytes at patella. JOINTS: Narrowing of the lateral patellar femoral joint space and mild periarticular spurring. Later al patellar subluxation are also present. No joint effusion is seen. SOFT TISSUE: Normal. IMPRESSION: Femoral tibial prosthesis. Degenerative changes at the patellofemoral joint with mild lateral sublux ation. DATA REPOSITORY: RADIATION DOSE DELIVERED:
== END 2024-06-15 15:48 | disposition home or self-care (01) ==
LOC: DIORS 15:47
PROVIDERS: PCP Nurse Practitioner; Visit Provider Student in an Organized Health Care Education/Training Program
DX: Z96.652 Presence of left artificial knee joint (principal); Z47.1 Aftercare following joint replacement surgery
CPT/HCPCS: 73562

== ENCOUNTER 2024-11-07 03:27 | Outpatient (CLI) | payer OTHER, SELFPAY ==
[2024-11-07 08:35] LABS: Hemoglobin A1C 5.6 % (<5.7)
[2024-11-07 09:02] LABS: ALT 14 U/L (14-59); AST 16 U/L (15-37); Albumin 3.4 g/dL (3.4-5.0); Alkaline Phosphatase 92 U/L (46-116); Anion Gap 5.4 mmol/L (3-11); BUN 14 mg/dL (7-18); Bilirubin, Total 0.49 mg/dL (0.2-1.0); CO2 29.6 mmol/L (21.0-32.0); Calcium 9.6 mg/dL (8.5-10.1); Calculated LDL 95 mg/dL (<100); Chloride 108 mmol/L (98-107); Cholesterol 187 mg/dL (<200); Estimated GFR 61.75 (mL/min/1.73m2); Glucose 92 mg/dL (74-106); HDL Cholesterol 79 mg/dL (40-60); Potassium 4.9 mmol/L (3.5-5.1); Sodium 143 mmol/L (136-145); TSH (W/Ref FT4) 1.44 uIU/mL (0.36-3.74); Total Protein 7.1 g/dL (6.4-8.2); Triglyceride 68 mg/dL (<150)
== END 2024-11-07 03:28 | disposition home or self-care (01) ==
LOC: LBO 03:27
PROVIDERS: PCP Nurse Practitioner; Referring Provider Nurse Practitioner; Visit Provider Nurse Practitioner
DX: E03.9 Hypothyroidism, unspecified (principal); E66.9 Obesity, unspecified
CPT/HCPCS: 36415; 80053; 80061; 83036; 84443

== ENCOUNTER 2024-12-05 01:53 | Outpatient (CLI) | payer OTHER, SELFPAY ==
--- NOTE | 2024-12-05 06:45 | DI.MAMMO_ITS ---
Exam(s) MAMMO SCREENING EXAM: MAMMO SCREENING CLINICAL HISTORY: screening,z12.39 TECHNIQUE: Bilateral full field digital CC and MLO mammographic images were obtained with 3D tomosyn thesis and utilizing computer aided detection (CAD). COMPARISON: Available for comparison. FINDINGS: Masses/Architectural Distortion: None seen. Microcalcifications: No suspicious pleomorphic-type are seen. Skin Thickening/Nipple Retraction: None. IMPRESSION: 1. No significant interval change with no specific features of malignancy noted. 2. Unless there is more urgent need, screening mammography is recommended, as per [employer] guidelines. BI-RADS Category 1 - Negative Breast Density - Category B - Scattered areas of fibroglandular density Breast density category C or D implies that the patient has dense breast tissue. Dense breast tissue is very common and is not abnormal but dense breast tissue can make it harder to find cancer on a ma mmogram. Also, dense breast tissue may increase their breast cancer risk. This information about the result of the mammogram report was provided to the patient to raise their awareness. Use this report when you speak with the patient about their risks for breast cancer, which includes their family hist ory. At that time, you may recommend for more screening tests (Ultrasound or MRI) as they might be us eful based on their risk. A negative radiographic report should not delay biopsy if a dominant or clinically suspicious mass is present. Up to ten percent of cancers are not identified on mammography. A negative report may reinforce clinical impression. Adenosis and dense breasts may obscure an underlying neoplasm. False positive reports average 6 to 10%. Patient will receive a letter notifying them of these results.
== END 2024-12-05 02:13 ==
LOC: DI 01:53
PROVIDERS: PCP Nurse Practitioner; Visit Provider Nurse Practitioner
DX: Z12.31 Encounter for screening mammogram for malignant neoplasm of breast (principal); R92.323 Mammographic fibroglandular density, bilateral breasts
CPT/HCPCS: 77063; 77067

== ENCOUNTER 2024-12-05 08:24 | Outpatient (CLI) | payer OTHER, SELFPAY ==
[2024-12-06 10:45] LABS: Measles IgG Antibody Positive (See Note)
== END 2024-12-05 08:25 | disposition home or self-care (01) ==
LOC: LBO 08:24
PROVIDERS: PCP Nurse Practitioner; Visit Provider Nurse Practitioner
DX: Z01.84 Encounter for antibody response examination (principal); Z09 Encounter for follow-up examination after completed treatment for conditions other than malignant neoplasm; R23.2 Flushing
CPT/HCPCS: 36415; 86765

== ENCOUNTER 2025-08-15 08:55 | Day surgery (SDC) | payer OTHER, SELFPAY ==
[2025-08-15 09:05] VITALS: BP 116/53; PULSE 75; RESP 16; TEMP 36; O2SAT 99
[2025-08-15] MEDS: Lactated Ringers 1,000 ML 80 ML IV (09:26)
[2025-08-15] MEDS: Na Phosphate Enema-Adult 133 ML BTL PR (10:48)
--- NOTE | 2025-08-15 11:00 | W.ANESPRE ---
General Info Date of Service Date Performed: 08/15/25 Height: 5 ft 4 in Weight: 83.4 kg Body Mass Index (BMI): 31.5 Surgical Procedure: Operation Date: 08/15/25 10:50 Proposed Procedure Side Surgeon p Colonoscopy Jessica Gutiérrez MD Meds Allergies and Home Medications Allergies Allergy/AdvReac Type Severity Reaction Status Date / Time minocycline HCl (From Allergy Severe Anaphylaxsi Verified 08/15/25 09:15 Minocin) s Skin Cleanser Combination Allergy Severe Anaphylaxsi Verified 08/15/25 09:15 No.4 (From Minocin) s adhesive AdvReac Intermediate . Verified 08/15/25 09:15 hayfever Allergy Mild . Uncoded 08/15/25 09:15 Home Medication Medication Instructions Recorded celecoxib 200 mg capsule See Rx Instructions .Route 04/04/25 .COMPLEX #90 caps levothyroxine 100 mcg tablet See Rx Instructions .Route 04/04/25 .COMPLEX #90 tabs semaglutide (weight loss) 2.4 See Rx Instructions .Route 05/23/25 mg/0.75 mL subcutaneous pen .COMPLEX #3 mL injector (Wegovy) omeprazole 20 mg capsule,delayed See Rx Instructions .Route 06/20/25 release .COMPLEX #180 caps bisacodyl 5 mg tablet,delayed 5 mg PO ONCE Colonoscopy Bowel 08/02/25 release Prep #4 tabs polyethylene glycol 3350 17 238 g PO ONCE #238 grams 08/02/25 gram/dose oral powder Current Visit Medications: Current Medications Generic Name Dose Route Start Last Admin Trade Name Freq PRN Reason Stop Dose Admin Ringer's Solution 1,000 mls @ 80 mls/hr 08/15/25 06:00 08/15/25 09:26 IV 08/15/25 23:59 80 mls/hr INFUSION JESSI Administration IV Miscellaneous Supplies 1 each 08/15/25 06:00 Iv Access IV 08/15/25 23:59 DIRECTED JESSI Sodium Chloride 0 ml 08/15/25 06:00 Normal Saline Flush 10 Ml Syr IV 08/15/25 23:59 PRN PRN Sodium Chloride 0 ml 08/15/25 06:00 Normal Saline 10 Ml Vial IJ 08/15/25 23:59 DIRECTED PRN Sterile Water 0 ml 08/15/25 06:00 Water,Injection,Sterile 10 Ml Vial IJ 08/15/25 23:59 DIRECTED PRN [facility] Active Problems Active Problems: Problem Status Onset Code Corns and callosities Acute L84 Tailor's bunion of left foot Acute M21.622 Osteoarthritis of ankle, right Acute M19.071 Osteoarthritis of ankle, left Acute M19.072 Hallux valgus, bilateral Acute ~12/2024 M20.11, M20.12 Pressure injury of skin of cleft Acute L89.40 Pain in vestibule of vulva Acute R10.2 Obesity, morbid, BMI 50 or higher Acute E66.01 Pre-diabetes Acute R73.03 Osteoarthritis of right knee Acute M17.11 Synovitis of left knee Acute M65.9 Elevated C-reactive protein (CRP) Chronic R79.82 Painful total knee replacement, left Acute T84.84XA, Z96.652 History of robot-assisted laparoscopic hysterectomy Resolved Z90.710 Tubular adenoma of colon Acute D12.6 Colon polyps Acute K63.5 Elevated blood pressure reading without diagnosis of hypertension Acute 01/21/10 R03.0 Rosacea Acute 01/21/10 L71.9 Premature menopause Chronic 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) Chronic Z79.1 Obstructive sleep apnea Chronic 06/16/20 G47.33 Periodic limb movement disorder Acute 06/16/20 G47.61 Acquired hypothyroidism Chronic 02/02/17 E03.9 Medical History Medical History Osteophyte determined by x-ray (~2024) plantar heel spurs bilat 5th hammertoe deformity R BMI 50.0-59.9, adult TATYANA (obstructive sleep apnea) states has not been fitted for CPAP yet Colon cancer screening Endometrial adenocarcinoma (06/26/17) stage 1A grade 1 [facility] [place] History of elevated antinuclear antibody (MYRNA) GERD (gastroesophageal reflux disease) Shingles 1st episode date unknown. Rec'd 2 doses Shingrix. Had 2nd episode shingles 2019 Tricompartment osteoarthritis of left knee fx left clavicle Surgical History Surgical History Status post total left knee replacement (09/29/19) H/O hysterectomy with oophorectomy (~06/2017) [facility] [place] 06/2017 Cholecystectomy (09/27/04) Tobacco Smoking/Tobacco Use Status: Never Passive smoking exposure: No Alcohol Alcohol Intake: current Alcohol intake frequency: a few times a month Alcohol type: wine Substance Use Substance use: Never Substance use type: does not use Vital Signs and Lab Results Vital Signs Most Recent Vital Signs in EMR: Most Recent Vital Signs Temp Pulse Resp BP Pulse Ox 36 C L 75 16 116/53 L 99 08/15/25 09:05 08/15/25 09:05 08/15/25 09:05 08/15/25 09:05 08/15/25 09:05 Anesthesia Assessment and Plan Anesthesia History Personal History: PONV Family History: No Family History of Anesthesia Complications Exercise Tolerance Exercise Tolerance: Metabolic Equivalents<4 Pertinent Negatives Pertinent Negatives: No Symptoms of GERD Cardiac & Pulmonary Exam Cardiac Exam: Normal S1/S2 Heart Sounds Pulmonary Exam: Clear Bilateral Breath Sounds Implantable Cardiac Device Does patient have a Pacemaker or an ICD?: No Airway Exam Known Difficult Airway: No Mallampati Class: 2 Mouth Opening: Normal (> 3cm) Thyromental Distance: Greater than 3 cm Neck Range of Motion: Full ROM Neck Circumference: Normal Teeth Condition: Normal Dentition ASA Classification ASA Score: ASA 2 Emergency Case?: No NPO Status NPO Status: NPO Clears >2 hours, Solids >8 hours Anesthesia Plan Resuscitation Status: Full Code Anesthesia Technique: General Anesthesia Airway Planned: Natural Airway Monitors Used: Standard Monitors Preoperative Comments:: GLP1 > 8days
[2025-08-15 11:01] VITALS: BMI 31.5
[2025-08-15 12:17] VITALS: BP 98/48; PULSE 80; RESP 16; TEMP 36.4; O2SAT 97
--- NOTE | 2025-08-15 12:19 | W.PM.DSUDISC ---
Date of service: 08/15/25 Discharge Plan Disposition Patient Disposition: Home Condition: Good Discharge Details Reason For Visit: Colonoscopy Attending Provider: Jessica Gutiérrez Primary Care Provider: Jessica Rizzo Home Meds and New Rx's Prescriptions: Continued celecoxib 200 mg capsule See Rx Instructions .ROUTE .COMPLEX Qty: 90 3RF Dose Instruction: TAKE ONE CAPSULE BY MOUTH EVERY DAY Rx Instructions: TAKE ONE CAPSULE BY MOUTH EVERY DAY levothyroxine 100 mcg tablet See Rx Instructions .ROUTE .COMPLEX Qty: 90 3RF Dose Instruction: TAKE ONE TABLET BY MOUTH EVERY DAY Rx Instructions: TAKE ONE TABLET BY MOUTH EVERY DAY Wegovy 2.4 mg/0.75 mL pen injector See Rx Instructions .ROUTE .COMPLEX Qty: 3 8RF Dose Instruction: INJECT 2.4MG UNDER THE SKIN ONCE WEEKLY Rx Instructions: INJECT 2.4MG UNDER THE SKIN ONCE WEEKLY omeprazole 20 mg capsule,delayed release(DR/EC) See Rx Instructions .ROUTE .COMPLEX Qty: 180 0RF Dose Instruction: TAKE ONE CAPSULE BY MOUTH TWICE A DAY Rx Instructions: TAKE ONE CAPSULE BY MOUTH TWICE A DAY Discontinued bisacodyl 5 mg tablet,delayed release (DR/EC) 5 mg PO ONCE Qty: 4 0RF Rx Instructions: Per Colonoscopy bowel prep instructions polyethylene glycol 3350 17 gram/dose powder 238 g PO ONCE Qty: 238 0RF Rx Instructions: For Colonoscopy bowel prep, as directed by office Discharge Instructions Additional Instructions: Your colonoscopy prep today was inadequate to be able to complete the colonoscopy and look for polyps. The recommendation would be to have a repeat colonoscopy with a longer prep. The surgery clinic will contact you to set up a repeat colonoscopy. 1. If tolerated, consume a soft, low fiber diet for 1-2 days. [address] Do not drive, drink alcohol, operate machinery, make critical decisions, or do activities that require coordination or balance for 24 hours. 3. Because air was put into your colon during the procedure, expelling air from your rectum (passing gas or farting) is normal. 4. You may not have a bowel movement for 1-3 days because of the colonoscopy prep. This is normal. 5. Go directly to the emergency room if you notice any of the following: Develop chills (warm to touch), or if you have a thermometer and your temperature is above 101 Difficulty breathing or difficultly swallowing Persistent vomiting Severe abdominal pain, other than gas cramps Severe chest pain Black, tarry stools Any bleeding – exceeding one tablespoon 6. Call your physician if the site where your intravenous was started becomes red, swollen, painful, and warm to touch. 7. Your physician has reviewed your pre-procedure medications. Please continue to take those medications as previously ordered. You will be given specific information/education regarding any changes to your medications before leaving. Stand Alone Forms: Anesthesia Discharge Inst., Zhen Cano (DSU), Portal Information Activity:: Activity as Tolerated Diet:: As Tolerated Discharge Orders Discharge Orders: Discharge Order (Routine); Ordered 08/15/25 Ordered By: Jessica Gutiérrez
--- NOTE | 2025-08-15 12:23 | W.COLOREPORT ---
Date of service: 08/15/25 Time of Service: 12:23 Colonoscopy Report Date of procedure: 08/15/25 Pre-op diagnosis general: Personal history of colon polyps Post-op diagnosis procedure note: same Procedure: Colonoscopy Surgeon: Jessica Gutiérrez Anesthesia Type: General:No Airway Estimated blood loss (mL): 0 Pathology: none sent Complications: None Disposition: PACU Indications: Patient is a 69 yo female with personal history of polyps who presents for a colonoscopy. She denies any changes in bowel habits or blood in her stool. Prep: Miralax/Dulcolax Procedure Start Time: 12:02 Procedure End Time: 12:07 Findings: Inadequate prep to perform colonoscopy safely or visualize polyps. Procedure Description: Informed consent was obtained. The patient was taken to the endoscopy suite and placed in the left lateral decubitus position. After adequate intravenous sedation, digital rectal exam was performed, which was normal. A colonoscope was inserted into the rectum and negotiated to the sigmoid colon. There was copious liquid stool precluding visualization and safe advancement of the scope. The patient tolerated the procedure well with no complications. Postoperatively, the patient was transferred to the recovery room in stable condition. [place] Bowel Prep [place] Bowel Prep Left Colon: 1 Total Score: 1
--- NOTE | 2025-08-15 12:23 | W.ANESPOSTOP ---
Postoperative Evaluation Date, Time and Location Date Performed: 08/15/25 Time Performed: 12:24 Patient Location: Day Surgery Unit Vital Signs Most Recent Imported Vital Signs: Most Recent Vital Signs Temp Pulse Resp BP Pulse Ox 36.4 C L 80 16 98/48 L 97 08/15/25 12:17 08/15/25 12:17 08/15/25 12:17 08/15/25 12:17 08/15/25 12:17 Pain Score Most Recent Pain Score: Most Recent Pain Score Pain Level 0 08/15/25 12:17 Assessment Mental Status: Awake (Alert & Oriented to Patient Baseline) Airway and Respiratory Function: Patent airway with normal (patient baseline) respiratory exam Cardiovascular Function: Hemodynamically Stable Hydration Status: Adequately Hydrated Nausea & Vomiting: No Nausea or Vomiting Pain: Pt. Denies Any Pain Peripheral Nerve Block: Patient did not receive a nerve block
[2025-08-15 12:44] VITALS: BP 96/51; PULSE 68; RESP 14; TEMP 36.4; O2SAT 98
== END 2025-08-15 13:03 | disposition home or self-care (01) ==
PROVIDERS: PCP Nurse Practitioner; Visit Provider Student in an Organized Health Care Education/Training Program
PROC: 0DJD8ZZ Inspection of Lower Intestinal Tract, Via Natural or Artificial Opening Endoscopic (ICD-10-PCS; CPT 45378; principal; 2025-08-15 10:45)
DX: Z12.11 Encounter for screening for malignant neoplasm of colon (principal); Z86.0100 Personal history of colon polyps, unspecified
CPT/HCPCS: 45378; J2003; J2704

== ENCOUNTER 2025-09-12 09:38 | Day surgery (SDC) | payer OTHER, SELFPAY ==
[2025-09-12 09:00] VITALS: BP 89/55; PULSE 90; RESP 16; TEMP 36.3; O2SAT 98
[2025-09-12 10:18] VITALS: BP 112/58; PULSE 95; RESP 16; TEMP 36.2; O2SAT 18
[2025-09-12] MEDS: Lactated Ringers 1,000 ML 80 ML IV (10:34)
--- NOTE | 2025-09-12 12:30 | W.PM.HP.N ---
Date of service: 09/12/25 Time of Service: 12:30 Assessment and Plan Assessment and plan (1) Tubular adenoma of colon: Status: Acute Assessment and plan: Patient is a 69-year-old female who presents for a colonoscopy given personal history of polyps. She had a previous prep recently which was inadequate for visualization. She follow-up today for repeat colonoscopy. She denies any changes in her health in the interim. The risks and benefits of the procedure were discussed with her and consent was obtained prior to the procedure. Will plan for screening colonoscopy. (2) Colon polyps: Status: Acute History of Present Illness Narrative: Patient is a 69-year-old female who presents for a colonoscopy given personal history of polyps. She had a previous prep recently which was inadequate for visualization. She follow-up today for repeat colonoscopy. She denies any changes in her health in the interim. Review of Systems Cardiovascular Cardiovascular: Denies chest pain and Denies dyspnea Respiratory Respiratory: Denies dyspnea Gastrointestinal Gastrointestinal: Denies abdominal pain, Denies nausea and Denies vomiting PFSH All Active Problems Corns and callosities (Acute) Tailor's bunion of left foot (Acute) Osteoarthritis of ankle, right (Acute) Osteoarthritis of ankle, left (Acute) Hallux valgus, bilateral (Acute ~12/2024) Severe R foot, mild w/out erosions L foot Severe 1st MTP joint space narrowing R foot, sm varus deformity 5th MTP joint (bunionette) Pressure injury of skin of cleft (Acute) Pain in vestibule of vulva (Acute) Obesity, morbid, BMI 50 or higher (Acute) Pre-diabetes (Acute) 2022. Rx with Wegovy. 70lb wt loss in 1 year. Osteoarthritis of right knee (Acute) Steroid injection: 05/17/25; 09/14/2022; 09/04/2021 Synovitis of left knee (Acute) Elevated C-reactive protein (CRP) (Chronic) 2017 to present Painful total knee replacement, left (Acute) Tubular adenoma of colon (Acute) Colon polyps (Acute) Elevated blood pressure reading without diagnosis of hypertension (Acute 01/21/10) Rosacea (Acute 01/21/10) Premature menopause (Chronic) manager intermediate current use of non-steroidal anti-inflammatories (NSAID) (Chronic) COX2 inhibitor Obstructive sleep apnea (Chronic 06/16/20) mod to severe 07/09/20 Sleep Clinic to discuss tx options Periodic limb movement disorder (Acute 06/16/20) Acquired hypothyroidism (Chronic 02/02/17) Medical History Osteophyte determined by x-ray (~2024) plantar heel spurs bilat 5th hammertoe deformity R BMI 50.0-59.9, adult TATYANA (obstructive sleep apnea) states has not been fitted for CPAP yet Colon cancer screening 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 Rec'd 2 doses Shingrix. Had 2nd episode shingles 2019 Tricompartment osteoarthritis of left knee fx left clavicle Surgical History History of colonoscopy (~08/15/25) Status post total left knee replacement (09/29/19) H/O hysterectomy with oophorectomy (~06/2017) [facility] [place] 06/2017 Cholecystectomy (09/27/04) Family History Mother Lung cancer Father , CHF at age 86. 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 Current gender identity: female What is your relationship status?: How often do you talk on the phone with friends or family?: three or more times per week How often do you get together with friends or relatives?: three or more times per week Panel score (0-1 are the most socially isolated patients): 2 What type of physical activity do you participate in: walking Duration: 15-30 minutes/day Frequency: 3-4 times per week Seatbelt use: always Drive intox or ride w/intox 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 Verified 09/12/25 10:11 hayfever Allergy Mild . Uncoded 09/12/25 10:11 Home Medications ?Medication ?Instructions ?Recorded ?Confirmed ?Type celecoxib 200 mg capsule See Rx Instructions .Route 04/04/25 09/12/25 Rx .COMPLEX #90 caps levothyroxine 100 mcg tablet See Rx Instructions .Route 04/04/25 09/12/25 Rx .COMPLEX #90 tabs semaglutide (weight loss) 2.4 See Rx Instructions .Route 05/23/25 09/10/25 Rx mg/0.75 mL subcutaneous pen .COMPLEX #3 mL injector ([employer]) bisacodyl 5 mg tablet,delayed 5 mg PO ONCE #8 tabs 08/31/25 09/12/25 Rx release (Dulcolax (bisacodyl)) peg 3350-electrolytes 236 240 ml PO Q10M #4,000 mL 08/31/25 09/12/25 Rx gram-22.74 gram-6.74 gram-5.86 gram solution (Golytely) ondansetron 4 mg disintegrating 4 mg PO Q8H PRN nausea and 09/03/25 09/12/25 Rx tablet vomiting #4 tabs omeprazole 20 mg capsule,delayed See Rx Instructions .Route 09/07/25 09/12/25 Rx release .COMPLEX #180 caps Exam Narrative Exam Narrative: General: Well appearing, no acute distress. Skin: Good turgor, no visible rashes or lesion HEENT: Normocephalic, atraumatic CV: Regular rate and rhythm Lungs: Bilateral equal chest rise, non-labored breathing Abdomen: Non-distended Extremities: Warm, well perfused Neurologic: No focal deficits Psychiatric: Alert and oriented, normal mood and affect Results Last Vital Signs Temp 36.2 C L 09/12/25 10:18 Pulse 95 H 09/12/25 10:18 Resp 16 09/12/25 10:18 BP 112/58 L 09/12/25 10:18 Pulse Ox 18 L 09/12/25 10:18 VTE Prohylaxis Risk Level: Low Risk Contraindications: Other (Preprocedure) Prophylaxis: Patient ambulatory Time Spent Time spent with Patient: <40 minutes Time was spent: preparing to see the patient(eg.review tests), obtaining and/or reviewing separately otained hiistory and counseling the patient
--- NOTE | 2025-09-12 12:31 | W.ANESPRE ---
General Info Date of Service Date Performed: 09/12/25 Height: 5 ft 4 in Weight: 83.1 kg Body Mass Index (BMI): 31.4 Surgical Procedure: Operation Date: 09/12/25 11:20 Proposed Procedure Side Surgeon p Colonoscopy Jessica Gutiérrez MD Actual Procedure Side Surgeon p Colonoscopy Not Applicable Jessica Gutiérrez MD Meds Allergies and Home Medications Allergies Allergy/AdvReac Type Severity Reaction Status Date / Time minocycline HCl (From Allergy Severe Anaphylaxsi Verified 09/10/25 15:36 Minocin) s Skin Cleanser Combination Allergy Severe Anaphylaxsi Verified 09/12/25 10:11 No.4 (From Minocin) s adhesive AdvReac Intermediate . Verified 09/12/25 10:11 hayfever Allergy Mild . Uncoded 09/12/25 10:11 Home Medication ?Medication ?Instructions ?Recorded celecoxib 200 mg capsule See Rx Instructions .Route 04/04/25 .COMPLEX #90 caps levothyroxine 100 mcg tablet See Rx Instructions .Route 04/04/25 .COMPLEX #90 tabs semaglutide (weight loss) 2.4 See Rx Instructions .Route 05/23/25 mg/0.75 mL subcutaneous pen .COMPLEX #3 mL injector ([employer]) bisacodyl 5 mg tablet,delayed 5 mg PO ONCE #8 tabs 08/31/25 release (Dulcolax (bisacodyl)) peg 3350-electrolytes 236 240 ml PO Q10M #4,000 mL 08/31/25 gram-22.74 gram-6.74 gram-5.86 gram solution (Golytely) ondansetron 4 mg disintegrating 4 mg PO Q8H PRN nausea and 09/03/25 tablet vomiting #4 tabs omeprazole 20 mg capsule,delayed See Rx Instructions .Route 09/07/25 release .COMPLEX #180 caps Current Visit Medications: Current Medications Generic Name Dose Route Start Last Admin Trade Name Freq PRN Reason Stop Dose Admin Ringer's Solution 1,000 mls @ 80 mls/hr 09/12/25 06:00 09/12/25 10:34 IV 09/12/25 23:59 80 mls/hr INFUSION JESSI Administration Sodium Chloride 0 ml 09/12/25 06:00 Normal Saline Flush 10 Ml Syr IV 09/12/25 23:59 PRN PRN Sodium Chloride 0 ml 09/12/25 06:00 Normal Saline 10 Ml Vial IJ 09/12/25 23:59 DIRECTED PRN Sterile Water 0 ml 09/12/25 06:00 Water,Injection,Sterile 10 Ml Vial IJ 09/12/25 23:59 DIRECTED PRN PFSH Active Problems Active Problems: Problem Status Onset Code Corns and callosities Acute L84 Tailor's bunion of left foot Acute M21.622 Osteoarthritis of ankle, right Acute M19.071 Osteoarthritis of ankle, left Acute M19.072 Hallux valgus, bilateral Acute ~12/2024 M20.11, M20.12 Pressure injury of skin of theresa cleft Acute L89.40 Pain in vestibule of vulva Acute R10.2 Obesity, morbid, BMI 50 or higher Acute E66.01 Pre-diabetes Acute R73.03 Osteoarthritis of right knee Acute M17.11 Synovitis of left knee Acute M65.9 Elevated C-reactive protein (CRP) Chronic R79.82 Painful total knee replacement, left Acute T84.84XA, Z96.652 History of robot-assisted laparoscopic hysterectomy Resolved Z90.710 Tubular adenoma of colon Acute D12.6 Colon polyps Acute K63.5 Elevated blood pressure reading without diagnosis of hypertension Acute 01/21/10 R03.0 Rosacea Acute 01/21/10 L71.9 Premature menopause Chronic E28.319 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 current use of non-steroidal anti-inflammatories (NSAID) Chronic Z79.1 Obstructive sleep apnea Chronic 06/16/20 G47.33 Periodic limb movement disorder Acute 06/16/20 G47.61 Acquired hypothyroidism Chronic 02/02/17 E03.9 Medical History Medical History Osteophyte determined by x-ray (~2024) plantar heel spurs bilat 5th hammertoe deformity R BMI 50.0-59.9, adult TATYANA (obstructive sleep apnea) states has not been fitted for CPAP yet Colon cancer screening 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 Rec'd 2 doses Shingrix. Had 2nd episode shingles 2019 Tricompartment osteoarthritis of left knee fx left clavicle Surgical History Surgical History History of colonoscopy (~08/15/25) Status post total left knee replacement (09/29/19) H/O hysterectomy with oophorectomy (~06/2017) [facility] [place] 06/2017 Cholecystectomy (09/27/04) Tobacco Smoking/Tobacco Use Status: Never Passive smoking exposure: No Alcohol Alcohol Intake: current Alcohol intake frequency: a few times a month Alcohol type: wine Substance Use Substance use: Never Substance use type: does not use Vital Signs and Lab Results Vital Signs Most Recent Vital Signs in EMR: Most Recent Vital Signs Temp Pulse Resp BP Pulse Ox 36.2 C L 95 H 16 112/58 L 18 L 09/12/25 10:18 09/12/25 10:18 09/12/25 10:18 09/12/25 10:18 09/12/25 10:18 Imaging and Studies Imaging and Studies Study information below may be from another EMR and interpreted by another provider. Please see original notes in EMR for more complete details. Echocardiogram Summary: Reviewed Carotid Artery Summary:: Reviewed Pulmonary Function Summary: Reviewed Anesthesia Assessment and Plan Anesthesia History Personal History: No History of Anesthesia Complications Family History: No Family History of Anesthesia Complications Exercise Tolerance Exercise Tolerance: Metabolic Equivalents<4 Pertinent Negatives Pertinent Negatives: No Symptoms of GERD Cardiac & Pulmonary Exam Cardiac Exam: Normal S1/S2 Heart Sounds Pulmonary Exam: Clear Bilateral Breath Sounds Implantable Cardiac Device Does patient have a Pacemaker or an ICD?: No Airway Exam Known Difficult Airway: No Mallampati Class: 2 Mouth Opening: Normal (> 3cm) Thyromental Distance: Greater than 3 cm Neck Range of Motion: Full ROM Neck Circumference: Normal Teeth Condition: Normal Dentition ASA Classification ASA Score: ASA 2 Emergency Case?: No NPO Status NPO Status: NPO Clears >2 hours, Solids >8 hours Anesthesia Plan Resuscitation Status: Full Code Anesthesia Technique: General Anesthesia Airway Planned: Natural Airway Monitors Used: Standard Monitors
[2025-09-12 12:32] VITALS: BMI 31.4
--- NOTE | 2025-09-12 13:04 | BOWEL_PTH ---
PATIENT: Catarina Kemp LOC: [facility] U#:[id number] AGE/SX: 69/F ROOM: RE09/12/[address]: Jessica Gutiérrez : 1955 BED: DIS: 09/12/2025 SPEC #: [id number] RECD: 09/12/25 13:19 STATUS: ARCELIA RE #: [id number] FRANCES: 09/12/25 13:[address]: Jessica Gutiérrez DEPT: Surgical Specimen RECD BY: Koki Mendoza ENTERED: 09/12/25 13:20 SP TYPE: Bowel OTHR DR: Jessica Rizzo APRN Tissues: 1 - BIOPSY BOWEL Procedures: GROSS AND MICRO LEVEL 4 Comments: [id number]
--- NOTE | 2025-09-12 13:12 | W.PM.DSUDISC ---
Date of service: 09/12/25 Discharge Plan Disposition Patient Disposition: Home Condition: Good Discharge Details Reason For Visit: History of colon polyps Attending Provider: Jessica Gutiérrez Primary Care Provider: Jessica Rizzo Recommendations for Follow Up Recommended tests to be ordered by follow up provider: Follow up pathology Home Meds and New Rx's Prescriptions: Continued celecoxib 200 mg capsule See Rx Instructions .ROUTE .COMPLEX Qty: 90 3RF Dose Instruction: TAKE ONE CAPSULE BY MOUTH EVERY DAY Rx Instructions: TAKE ONE CAPSULE BY MOUTH EVERY DAY levothyroxine 100 mcg tablet See Rx Instructions .ROUTE .COMPLEX Qty: 90 3RF Dose Instruction: TAKE ONE TABLET BY MOUTH EVERY DAY Rx Instructions: TAKE ONE TABLET BY MOUTH EVERY DAY Wegovy 2.4 mg/0.75 mL pen injector See Rx Instructions .ROUTE .COMPLEX Qty: 3 8RF Dose Instruction: INJECT 2.4MG UNDER THE SKIN ONCE WEEKLY Rx Instructions: INJECT 2.4MG UNDER THE SKIN ONCE WEEKLY ondansetron 4 mg tablet,disintegrating 4 mg PO Q8H PRN (Reason: nausea and vomiting) Qty: 4 0RF Rx Instructions: Take 1 tablet every 8 hours as needed for nausea during colonoscopy prep. omeprazole 20 mg capsule,delayed release(DR/EC) See Rx Instructions .ROUTE .COMPLEX Qty: 180 3RF Dose Instruction: TAKE ONE CAPSULE BY MOUTH TWICE A DAY Rx Instructions: TAKE ONE CAPSULE BY MOUTH TWICE A DAY Discontinued bisacodyl [Dulcolax (bisacodyl)] 5 mg tablet,delayed release (DR/EC) 5 mg PO ONCE Qty: 8 0RF Rx Instructions: Take per colonoscopy instructions provided by ordering providers office peg 3350-electrolytes [Golytely] 236-22.74-6.74 -5.86 gram recon soln 240 ml PO Q10M Qty: 4000 0RF Rx Instructions: until fecal effluent is clear Discharge Instructions Additional Instructions: Your colonoscopy went well today. Your prep was excellent. You did have evidence of 1 small polyp which was removed and will be sent to pathology. Once these results return we will contact you for recommendations for when to have a repeat colonoscopy. If you have any questions or concerns please contact the general surgery office. 1. If tolerated, consume a soft, low fiber diet for 1-2 days. 2[address] not drive, drink alcohol, operate machinery, make critical decisions, or do activities that require coordination or balance for 24 hours. 3. Because air was put into your colon during the procedure, expelling air from your rectum (passing gas or farting) is normal. 4. You may not have a bowel movement for 1-3 days because of the colonoscopy prep. This is normal. 5. Go directly to the emergency room if you notice any of the following: Develop chills (warm to touch), or if you have a thermometer and your temperature is above 101 Difficulty breathing or difficultly swallowing Persistent vomiting Severe abdominal pain, other than gas cramps Severe chest pain Black, tarry stools Any bleeding ? exceeding one tablespoon 6. Call your physician if the site where your intravenous was started becomes red, swollen, painful, and warm to touch. 7. Your physician has reviewed your pre-procedure medications. Please continue to take those medications as previously ordered. You will be given specific information/education regarding any changes to your medications before leaving. Stand Alone Forms: Portal Information Activity:: Activity as Tolerated Diet:: As Tolerated Discharge Orders Discharge Orders: Discharge Order (Routine); Ordered 09/12/25 Ordered By: Jessica Gutiérrez DS: Diagnosis Discharge Diagnosis (1) Tubular adenoma of colon: Status: Acute (2) Colon polyps: Status: Acute
--- NOTE | 2025-09-12 13:13 | COLE_ITS ---
Date of service: 09/12/25 Time of Service: 13:13 Colonoscopy Report Date of procedure: 09/12/25 Pre-op diagnosis general: History of colon polyps Post-op diagnosis procedure note: same Procedure: Colonoscopy with polypectomy Surgeon: Jessica Gutiérrez Anesthesia Type: General:No Airway Estimated blood loss (mL): 1 Pathology: other (Rectal polyp ) Complications: None Disposition: PACU Indications: Patient is a 69-year-old female who presents for a colonoscopy due to a personal history of polyps. She denies any changes in bowel habits or blood in her stool. Prep: Miralax/Dulcolax Procedure Start Time: 12:45 Procedure End Time: 13:05 Retraction Time: 9 Findings: Small rectal polyp removed with cold forceps. Otherwise normal colonoscopy. Procedure Description: The patient was brought to the endoscopy suite and placed in the left lateral decubitus position. After induction of IV sedation, a digital rectal exam was performed.. Digital exam was normal. The colonoscope was then passed to the cecum without difficulty. Cecal intubation was confirmed by the identification of the appendiceal orifice and the ileocecal valve. Upon withdrawing the colonoscope, all mucosal surfaces were inspected. The prep was noted to be adeq uate. In the rectum, there was a small polyp, which was removed using cold forceps in its entirety. Specimen was retrieved for pathological analysis. There was no other evidence of mucosal abnormality, polyp or cancer. Retroflexion in the rectum was unremarkable. The patient tolerated the procedure well with no complications. Postoperatively, the patient was transferred to the recovery room in stable condition. [place] Bowel Prep [place] Bowel Prep Right Colon: 3 Left Colon: 3 Transverse Colon: 3 Total Score: 9
[2025-09-12 13:30] VITALS: BP 97/60; PULSE 86; RESP 18; TEMP 36.2; O2SAT 97
--- NOTE | 2025-09-12 14:01 | W.ANESPOSTOP ---
Postoperative Evaluation Date, Time and Location Date Performed: 09/12/25 Time Performed: 13:12 Patient Location: Day Surgery Unit Vital Signs Most Recent Imported Vital Signs: Most Recent Vital Signs Temp Pulse Resp BP Pulse Ox 36.2 C L 86 18 97/60 L 97 09/12/25 13:30 09/12/25 13:30 09/12/25 13:30 09/12/25 13:30 09/12/25 13:30 Pain Score Most Recent Pain Score: Most Recent Pain Score Pain Level 0 09/12/25 13:30 Assessment Mental Status: Awake (Alert & Oriented to Patient Baseline) Airway and Respiratory Function: Patent airway with normal (patient baseline) respiratory exam Cardiovascular Function: Hemodynamically Stable Hydration Status: Adequately Hydrated Nausea & Vomiting: No Nausea or Vomiting Pain: Pt. Denies Any Pain Peripheral Nerve Block: Patient did not receive a nerve block Postoperative Comments:: VS were from immediately postop, timed later.
== END 2025-09-12 14:07 | disposition home or self-care (01) ==
PROVIDERS: PCP Nurse Practitioner; Visit Provider Student in an Organized Health Care Education/Training Program
PROC: 0DJD8ZZ Inspection of Lower Intestinal Tract, Via Natural or Artificial Opening Endoscopic (ICD-10-PCS; CPT 45378; principal; 2025-09-12 11:15)
DX: Z12.11 Encounter for screening for malignant neoplasm of colon (principal); K62.1 Rectal polyp
CPT/HCPCS: 45380; 88305; J2003; J2704; J3010